=== PATIENT | female | born 1950 | race Caucasian/White ===

== ENCOUNTER 2017-07-29 10:23 | Inpatient (IN) | payer MEDICARE, BC ==
--- NOTE | 2017-07-29 10:43 | EDM.PDOC ---
ED HPI GENERAL MEDICAL PROBLEM - General Chief Complaint: Cardiovascular Problem Stated Complaint: SOB Time Seen by Provider: 07/29/17 10:41 Source of Information: Reports: Patient - History of Present Illness INITIAL COMMENTS - FREE TEXT/NARRATIVE: Patient is here today with complaints of chest pain. She states that this started this morning, she has had similar pains previously. She states that it is worse with movement and with breathing especially on exhalation. This does not change with exertion though she has not done much to exert herself per her report. Patient states it is quite sharp, not squeezing. She has no cardiac history or history of blood clots but she has been under treatment for breast cancer for the last 4 years. She states that just last week her oncologist Dr. Handley stopped her chemotherapy as she was having significant side effect from this the plan is to hold her chemotherapy for 2 months and then resume again. Patient denies any headache/dizziness. She does feel a bit short of breath. Denies any nausea. She notes edema but states that this has been an ongoing issue. Left Chest Pain Score (Numeric/FACES): 9 - Related Data Allergies Allergy/AdvReac Type Severity Reaction Status Date / Time celecoxib [From Celebrex] Allergy Cannot Verified 07/29/17 10:35 Remember silver Allergy Blisters Verified 07/29/17 10:35 [From Tegaderm AG Mesh] venom-wasp [wasp venom] Allergy Swelling Verified 07/29/17 10:35 atorvastatin AdvReac Muscle Verified 07/29/17 13:11 Weakness naproxen [From Aleve] AdvReac Lightheaded Verified 07/29/17 13:11 ness pravastatin AdvReac Muscle Verified 07/29/17 13:11 Weakness simvastatin AdvReac Muscle Verified 07/29/17 13:11 Weakness tegaderm Allergy Rash Uncoded 04/27/16 09:29 Home Meds: Home Meds Aspirin [Halfprin] 81 mg PO DAILY 03/18/16 [History] B2/Vit A,C & E/Lut/Zeaxanth/Mn [Icaps] 1 tab PO DAILY 03/18/16 [History] Colestipol HCl 1 gm PO BID 03/18/16 [History] Krill/Om-3/DHA/EPA/Phospho/Ast [Thornton-3 Krill Oil 300 mg Sfgl] 1 cap PO DAILY [History] Levothyroxine [Synthroid] 50 mcg PO ACBREAKFAST 03/18/16 [History] Losartan [Cozaar] 25 mg PO DAILY 03/18/16 [History] Metoprolol Succinate [Toprol XL 100mg] 100 mg PO DAILY 03/18/16 [History] Multivitamin with Minerals [Multivitamins with Minerals] 1 tab PO DAILY [History] Nitroglycerin 0.4 mg SL ASDIRECTED PRN 03/18/16 [History] Omeprazole 20 mg PO BEDTIME 03/18/16 [History] Oxybutynin [Oxybutynin ER] 10 mg PO BEDTIME 03/18/16 [History] Biotin 1,000 mcg PO DAILY 04/27/16 [History] Calcium Carbonate/Vitamin D3 [Calcium 500 + Vit D 400 Tablet] 400 - 500 mg PO DAILY 04/27/16 [History] Hydrocortisone [Anusol-HC] 30 gm RC Q8H #1 cream..g. 04/27/16 [Rx] Ondansetron HCl [Zofran] 8 mg PO TID PRN 07/29/17 [History] Potassium Chloride 10 meq PO DAILY 07/29/17 [History] Prochlorperazine [Compazine] 10 mg PO QID PRN 07/29/17 [History] Past Medical History HEENT History: Reports: Impaired Vision Other HEENT History: wears eyeglasses Cardiovascular History: Reports: CAD, High Cholesterol, Hypertension Respiratory History: Reports: Pneumonia, Recurrent Gastrointestinal History: Reports: GERD, Hiatal Hernia Genitourinary History: Reports: UTI, Recurrent [employer] HEAD History: Reports: Musculoskeletal History: Reports: Arthritis Endocrine/Metabolic History: Reports: Hypothyroidism, Obesity/BMI 30+ Hematologic History: Reports: Anemia, Blood Transfusion(s) Immunologic History: Reports: Other (See Below) Oncologic (Cancer) History: Reports: Breast (adenocarcinoma, now recurrent with mets to lymph nodes and lung) Other Oncologic History: now has CA in lymph nodes. Dermatologic History: Reports: Eczema - Infectious Disease History Infectious Disease History: Reports: Shingles - Past Surgical History Female Surgical History: Reports: Hysterectomy, Mastectomy, Salpingo- Oophorectomy Oncologic Surgical History: Reports: Mastectomy Social & Family History - Tobacco Use Smoking Status *Q: Never Smoker Second Hand Smoke Exposure: No - Caffeine Use Caffeine Use: Reports: Soda - Alcohol Use Days Per Week of Alcohol Use: 0 - Recreational Drug Use Recreational Drug Use: No ED ROS GENERAL - Review of Systems Review Of Systems: See Below Constitutional: Reports: Weakness, Fatigue. Denies: Fever, Chills Respiratory: Reports: Shortness of Breath, Pleuritic Chest Pain. Denies: Wheezing, Cough Cardiovascular: Reports: Chest Pain, Blood Pressure Problem, Edema (Stable from previous per her report. ). Denies: Claudication GI/Abdominal: Reports: No Symptoms Skin: Reports: No Symptoms Neurological: Reports: No Symptoms, Other. Denies: Dizziness, Headache Psychiatric: Reports: No Symptoms Hematologic/Lymphatic: Reports: No Symptoms ED EXAM, GENERAL - Physical Exam Exam: See Below Exam Limited By: No Limitations General Appearance: Alert, WD/WN, Mild Distress Throat/Mouth: Normal Oropharynx Neck: Normal Inspection Respiratory/Chest: No Respiratory Distress, Lungs Clear, Normal Breath Sounds, No Accessory Muscle Use Cardiovascular: Normal Peripheral Pulses, Regular Rate, Rhythm, No Murmur Peripheral Pulses: 2+: Posterior Tibial (L), Posterior Tibial (R) GI/Abdominal: Normal Bowel Sounds Neurological: Alert, Oriented Psychiatric: Normal Affect Skin Exam: Warm, Dry, Intact EKG INTERPRETATION EKG Date: 07/29/17 Time: 10:35 Rhythm: NSR EKG Interpretation Comments: Left atrial enlargement left ventricular hypertrophy Course - Vital Signs Last Recorded V/S: Last Vital Signs Temp 98.5 F 07/29/17 10:31 Pulse 90 07/29/17 10:31 Resp 18 07/29/17 10:31 BP 248/119 H 07/29/17 10:31 Pulse Ox 92 L 07/29/17 10:31 - Orders/Labs/Meds Orders: Active Orders 24 hr Category Date Time Status EKG 12 Lead [EKG Documentation Completion] [RC] STAT Care 07/29/17 10:40 Active Sodium Chloride 0.9% [Normal Saline] 1,000 ml Med 07/29/17 11:02 Active IV ONETIME Sodium Chloride 0.9% [Normal Saline] 100 ml Med 07/29/17 12:30 Active IV ASDIRECTED Sodium Chloride 0.9% [Saline Flush] Med 07/29/17 12:23 Active 10 ml FLUSH ONETIME PRN Medication Orders Sodium Chloride (Normal Saline) 1,000 mls @ 250 mls/hr IV ONETIME ONE Stop: 07/29/17 15:01 Last Admin: 07/29/17 11:35 Dose: 250 mls/hr Sodium Chloride (Normal Saline) 100 mls @ 75 mls/hr IV ASDIRECTED FAMILIA Last Admin: 07/29/17 12:33 Dose: 75 mls/hr Sodium Chloride (Saline Flush) 10 ml FLUSH ONETIME PRN PRN Reason: Keep Vein Open Last Admin: 07/29/17 12:33 Dose: 10 ml Labs: Laboratory Tests 07/29/17 07/29/17 07/29/17 Range/Units 11:23 11:23 11:23 WBC 8.55 (3.98-10.04) K/mm3 RBC 3.70 L (3.98-5.22) M/mm3 Hgb 11.3 (11.2-15.7) gm/L Hct 36.0 (34.1-44.9) % MCV 97.3 H (79.4-94.8) fl MCH 30.5 (25.6-32.2) pg MCHC 31.4 L (32.2-35.5) g/dl RDW Std Deviation 54.7 H (36.4-46.3) fL Plt Count 377 H (182-369) K/mm3 MPV 10.3 (9.4-12.3) fl Neutrophils % (Manual) 72 H (40-60) % Band Neutrophils % 0 (0-10) % Lymphocytes % (Manual) 9 L (20-40) % Atypical Lymphs % 0 % Monocytes % (Manual) 16 H (2-10) % Eosinophils % (Manual) 3 (0.7-5.8) % Basophils % (Manual) 0 L (0.1-1.2) Platelet Estimate Adequate Hypochromasia 1+ slight Anisocytosis 1+ slight RBC Morph Comment Abnormal D-Dimer, Quantitative 9.68 H (0.19-0.59) mg/L Sodium 140 (136-145) mEq/L Potassium 3.6 (3.5-5.1) mEq/L Chloride 105 (98-107) mEq/L Carbon Dioxide 26 (21-32) mEq/L Anion Gap 12.6 (5-15) BUN 23 H (7-18) mg/dL Creatinine 1.3 H (0.55-1.02) mg/dL Est Cr Clr Drug Dosing 32.30 mL/min Estimated GFR (MDRD) 41 (>60) mL/min BUN/Creatinine Ratio 17.7 (14-18) Glucose 114 (80-115) mg/dL Calcium 9.1 (8.5-10.1) mg/dL Total Bilirubin 0.5 (0.2-1.0) mg/dL AST 36 (15-37) U/L ALT 33 (14-59) U/L Alkaline Phosphatase 131 H (46-116) U/L Troponin I 0.019 (0.00-0.056) ng/mL C-Reactive Protein 2.4 H* (<1.0) mg/dL Total Protein 6.9 (6.4-8.2) g/dl Albumin 3.4 (3.4-5.0) g/dl Globulin 3.5 gm/dL Albumin/Globulin Ratio 1.0 (1-2) Urine Color (Yellow) Urine Appearance (Clear) Urine pH (5.0-8.0) Ur Specific [place] (1.005-1.030) Urine Protein (Negative) Urine Glucose (UA) (Negative) Urine Ketones (Negative) Urine Occult Blood (Negative) Urine Nitrite (Negative) Urine Bilirubin (Negative) Urine Urobilinogen (0.2-1.0) Ur Leukocyte Esterase (Negative) Urine RBC (0-5) /hpf Urine WBC (0-5) /hpf Ur Epithelial Cells (0-5) /hpf Urine Bacteria (FEW) /hpf Hyaline Casts (0-5) /lpf Urine Mucus (FEW) /hpf 07/29/17 Range/Units 12:30 WBC (3.98-10.04) K/mm3 RBC (3.98-5.22) M/mm3 Hgb (11.2-15.7) gm/L Hct (34.1-44.9) % MCV (79.4-94.8) fl MCH (25.6-32.2) pg MCHC (32.2-35.5) g/dl RDW Std Deviation (36.4-46.3) fL Plt Count (182-369) K/mm3 MPV (9.4-12.3) fl Neutrophils % (Manual) (40-60) % Band Neutrophils % (0-10) % Lymphocytes % (Manual) (20-40) % Atypical Lymphs % % Monocytes % (Manual) (2-10) % Eosinophils % (Manual) (0.7-5.8) % Basophils % (Manual) (0.1-1.2) Platelet Estimate Hypochromasia Anisocytosis RBC Morph Comment D-Dimer, Quantitative (0.19-0.59) mg/L Sodium (136-145) mEq/L Potassium (3.5-5.1) mEq/L Chloride (98-107) mEq/L Carbon Dioxide (21-32) mEq/L Anion Gap (5-15) BUN (7-18) mg/dL Creatinine (0.55-1.02) mg/dL Est Cr Clr Drug Dosing mL/min Estimated GFR (MDRD) (>60) mL/min BUN/Creatinine Ratio (14-18) Glucose (80-115) mg/dL Calcium (8.5-10.1) mg/dL Total Bilirubin (0.2-1.0) mg/dL AST (15-37) U/L ALT (14-59) U/L Alkaline Phosphatase (46-116) U/L Troponin I (0.00-0.056) ng/mL C-Reactive Protein (<1.0) mg/dL Total Protein (6.4-8.2) g/dl Albumin (3.4-5.0) g/dl Globulin gm/dL Albumin/Globulin Ratio (1-2) Urine Color Yellow (Yellow) Urine Appearance Clear (Clear) Urine pH 7.0 (5.0-8.0) Ur Specific [place] 1.020 (1.005-1.030) Urine Protein 1+ H (Negative) Urine Glucose (UA) Negative (Negative) Urine Ketones Negative (Negative) Urine Occult Blood Negative (Negative) Urine Nitrite Negative (Negative) Urine Bilirubin Negative (Negative) Urine Urobilinogen 0.2 (0.2-1.0) Ur Leukocyte Esterase Trace H (Negative) Urine RBC 0-5 (0-5) /hpf Urine WBC 5-10 H (0-5) /hpf Ur Epithelial Cells 10-20 H (0-5) /hpf Urine Bacteria Moderate H (FEW) /hpf Hyaline Casts 0-5 (0-5) /lpf Urine Mucus Few (FEW) /hpf Meds: Medications Generic Name Dose Route Start Last Admin Trade Name Freq PRN Reason Stop Dose Admin Sodium Chloride 1,000 mls @ 250 mls/hr 07/29/17 11:02 07/29/17 11:35 Normal Saline IV 07/29/17 15:01 250 mls/hr ONETIME ONE Administration Sodium Chloride 100 mls @ 75 mls/hr 07/29/17 12:30 07/29/17 12:33 Normal Saline IV 75 mls/hr ASDIRECTED FAMILIA Administration Sodium Chloride 10 ml 07/29/17 12:23 07/29/17 12:33 Saline Flush FLUSH 10 ml ONETIME PRN Administration Keep Vein Open Discontinued Medications Generic Name Dose Route Start Last Admin Trade Name Freq PRN Reason Stop Dose Admin Acetaminophen 650 mg 07/29/17 11:58 07/29/17 12:49 Tylenol PO 07/29/17 11:59 650 mg NOW ONE Administration Aspirin 324 mg 07/29/17 10:51 07/29/17 11:38 Aspirin PO 07/29/17 10:52 Not Given ONETIME ONE Clonidine HCl 0.1 mg 07/29/17 14:37 Catapres PO 07/29/17 14:38 ONETIME ONE Iopamidol 100 ml 07/29/17 12:23 07/29/17 12:33 Isovue-370 (76%) IVPUSH 07/29/17 12:24 100 ml ONETIME ONE Administration - Re-Assessments/Exams Free Text/Narrative Re-Assessment/Exam: EKG normal sinus rhythm at a rate of 78. She does have left atrial enlargement/ ventricular hypertrophy. Patient initially declining stronger pain medication, agreeable to aspirin. Oxygen maintaining approximately 95% on room air. Blood pressure is significantly elevated at 212/87, patient is quite anxious and she is refusing blood pressure medication at this time. She states that she did take her morning home medications quite recently and they have not "kicked in". Will get lab work including troponin and d-dimer as well as chest x-ray 07/29/17 11:09 Patient declines aspirin, will be given Tylenol for pain. X-ray demonstrates no acute findings. 07/29/17 12:39 WBC 8550. Troponin 0.019. D-dimer was significantly elevated at 9.68. Patient does need a CTA of the chest to examine for evaluate for pulmonary embolism. Creatinine is 1.3, patient will be given fluids. 07/29/17 12:41 CTA demonstrates #1 pulmonary embolism in the distal right pulmonary artery extending into the subsegmental branch of the right upper lung as well as segmental branches of the right lower lung. #2 multiple subpleural pulmonary nodules suspicious for metastatic disease. #3 enlarged lymph node within the left axillary region likely metastatic. The lung nodule and enlarged lymph node are known by her oncologist and being monitored. 07/29/17 14:33 Patient's case was discussed with Dr. Jurado/hospitalist who agrees to accept care for the patient. Blood pressure continues to remain elevated as well so will give clonidine 0.1 mg by mouth. 07/29/17 14:37 The patient and her patient is a full CODE STATUS. 07/29/17 14:44 Departure - Departure Time of Disposition: 14:40 Disposition: Admitted As Inpatient 64 Condition: Fair Clinical Impression: Pulmonary embolism Qualifiers: Chronicity: acute Acute cor pulmonale presence: without acute cor pulmonale Hypertension Qualifiers: Hypertension type: essential hypertension Qualified Code(s): I10 - Essential ( primary) hypertension Breast CA Qualifiers: Patient sex: female Laterality: left Referrals: PCP,Unknown [Ordering Only Provider] - Forms: ED Department Discharge - My Orders Last 24 Hours: My Active Orders 07/29/17 10:40 EKG 12 Lead [EKG Documentation Completion] [RC] STAT 07/29/17 11:02 Sodium Chloride 0.9% [Normal Saline] 1,000 ml IV ONETIME 07/29/17 12:23 Sodium Chloride 0.9% [Saline Flush] 10 ml FLUSH ONETIME PRN 07/29/17 12:30 Sodium Chloride 0.9% [Normal Saline] 100 ml IV ASDIRECTED - Assessment/Plan Last 24 Hours: My Active Orders 07/29/17 10:40 EKG 12 Lead [EKG Documentation Completion] [RC] STAT 07/29/17 11:02 Sodium Chloride 0.9% [Normal Saline] 1,000 ml IV ONETIME 07/29/17 12:23 Sodium Chloride 0.9% [Saline Flush] 10 ml FLUSH ONETIME PRN 07/29/17 12:30 Sodium Chloride 0.9% [Normal Saline] 100 ml IV ASDIRECTED
[2017-07-29] MEDS ORDERED: Aspirin 81 MG Tab.Chew PO ONE (10:51)
[2017-07-29] MEDS ORDERED: Sodium Chloride 0.9% 1,000 ML IV ONE (11:02)
[2017-07-29] MEDS ORDERED: Acetaminophen 325 MG Tab PO ONE (11:58)
--- NOTE | 2017-07-29 12:21 | CR ---
Chest: Two views of the chest were obtained. Comparison: Prior chest x-ray of 03/18/16. Heart size and mediastinum are within normal limits. Lungs are clear. Surgical clips are seen within the left axillary region. Right-sided infusion port is seen. Slight degenerative endplate spurring is seen within the spine. Impression: 1. Findings as noted above. Nothing acute is appreciated. Diagnostic code #2
[2017-07-29] MEDS ORDERED: Iopamidol 755 Mg/ML 100 ML Bottle IVPUSH ONE (12:23)
[2017-07-29] MEDS ORDERED: Sodium Chloride 0.9% 10 ML Syringe FLUSH PRN (12:23)
[2017-07-29] MEDS ORDERED: Sodium Chloride 0.9% 100 ML IV SCH (12:30)
[2017-07-29] MEDS ORDERED: Sodium Chloride 0.9% 250 ML IV SCH (13:15)
--- NOTE | 2017-07-29 13:37 | CT ---
CT chest Technique: Multiple axial sections through the chest were obtained. Intravenous contrast was utilized. Study has been performed as a pulmonary angiogram protocol. Findings: Filling defects are identified within the distal right main pulmonary artery extending into the subsegmental branch of the right upper lung as well as segmental branches of the right lower lung. Subsegmental pulmonary emboli are seen within the right lung base as well as additional pulmonary emboli within subsegmental branches within the left lower lung. Small amount of clot is also seen within the lingular segmental branch. Mediastinal lymph nodes are seen felt to be within normal limits. Prominent lymph node is seen within the left axillary region measuring up to 2.6 cm. Small portion of the visualized upper abdominal structures shows previous cholecystectomy. Moderately large hiatal hernia is also noted. Multiple sub-pleural nodules are seen within both sides of the chest. These findings are suspicious for metastatic disease. Dominant nodule located within the right middle lobe measuring 1.0 cm. Bone window settings show degenerative endplate spurring within the spine. Slight coronary artery calcification is seen. Impression: 1. Findings of pulmonary embolism as described above. 2. Multiple subpleural pulmonary nodules suspicious for metastatic disease. 3. Enlarged lymph node within the left axillary region likely metastatic. Diagnostic code #9 [employer] called report to Linda Herrera and nurse Milagro at [phone] on 07/29/17 (left message, will confirm)
[2017-07-29] MEDS ORDERED: cloNIDine 0.1 MG Tab PO ONE (14:37)
[2017-07-29] MEDS ORDERED: Bumetanide 1 MG/4 ML MDV IVPUSH ONE (16:32)
[2017-07-29] MEDS ORDERED: hydrALAZINE 20 MG/ML SDV IVPUSH ONE (16:32)
[2017-07-29] MEDS ORDERED: Albuterol/Ipratropium 3.0-0.5 MG/3 ML Neb Soln NEB PRN (17:42)
[2017-07-29] MEDS ORDERED: Ondansetron 4 MG Tab.DIS PO PRN (17:42)
[2017-07-29] MEDS ORDERED: Docusate Sodium 100 MG Cap PO PRN (17:42)
[2017-07-29] MEDS ORDERED: Acetaminophen 325 MG Tab PO PRN (17:42)
[2017-07-29] MEDS ORDERED: Ondansetron 4 MG/2 ML SDV IV PRN (17:42)
[2017-07-29] MEDS ORDERED: Ketorolac 30 MG/ML SDV IM ONE (17:42)
[2017-07-29] MEDS ORDERED: Polyethylene Glycol 3350 Powder 17 GM Packet PO PRN (17:42)
[2017-07-29] MEDS ORDERED: Bisacodyl 5 MG Tab PO PRN (17:42)
[2017-07-29] MEDS ORDERED: Metoprolol Tartrate 5 MG/5 ML SDV IVPUSH PRN (17:52)
[2017-07-29] MEDS ORDERED: hydrALAZINE 20 MG/ML SDV IVPUSH PRN ×2 (17:52→17:55)
--- NOTE | 2017-07-29 17:57 | PCM.HP ---
H&P History of Present Illness - General Date of Service: 07/29/17 Admit Problem/Dx: Admission Diagnosis/Problem Admission Diagnosis/Problem Pulmonary embolism Source of Information: Patient, Old Records, Provider, RN, RN Notes Reviewed History Limitations: Reports: No Limitations - History of Present Illness Initial Comments - Free Text/Narative: Antonella Cortez is a 67 yo female who since her ED today with chest pain. She reports that this morning she has had similar pains previously. It is worse with movement and breathing,/on exhalation. She says the pain is sharp not squeezing. She has no cardiac history or history of blood clots but she benjamin been under treatment with Dr. Handley for breast cancer over the past 4 years. She reports that last week chemotherapy was stopped due to side effects and the plan is to restart chemotherapy in 2 months. She denies any headache, dizziness , nausea, vomiting. She has been short of breath. She does note pedal edema but states this has been chronic for her. She reports multiple drug allergies. In the ER temp is 98.5. Pulse 90. Respirations 18. BP was extremely high at 248/119. Pulse ox was 92% on room air. Twelve-lead EKG is obtained and interpreted by the ED provider as NSR at a rate of 78. Left atrial enlargement and ventricular hypertrophy are noted. Labs are obtained: FVC is 8.55. Hemoglobin 11.3. Hematocrit 36.0. She is macrocytic. Platelets are high at 377,000. Neutrophils are elevated at 72%. There is no bandemia. D-dimer is very high at 9.68. Sodium was good at 140. Potassium 3.6. Chloride 105. Carbon dioxide 26. Anion gap 12.6. BUN 23. Creatinine 1.3. EGFR is 41. Glucose is 114. Calcium 9.1. Total bilirubin 0.5. AST is 36, ALT 33, alkaline phosphatase 131. Troponin is negative at 0.019. CRP is elevated at 2.4. Total protein is 6.9. Albumin 3.4. UA shows 1+ protein, trace leukocyte esterase, 5-10 urine WBCs, 10-20 epithelial cells, and moderate bacteria. She has been declining stronger pain medications however 650 mg Tylenol and 324 mg aspirin are given. Catapres 0.1 mg by mouth was given for hypertension. CTA was obtained and interpreted by radiologist as "1. Pulmonary embolism in the distal right pulmonary artery extending into the subsegmental branch of the right upper lung as well as segmental branches of the right lower lung. 2. Multiple subpleural pulmonary nodules suspicious for metastatic disease. 3. Enlarged lymph node within the left axillary region likely metastatic." Lung nodule enlarged lymph node are known by her oncologist and her being monitored. 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 She is subsequently admitted to the medical floor on telemetry. She is a full code. Her PCP has switched several times although she reports she will be seeing Dr. Mock at [facility]. Her oncologist is Dr. Handley, however he is leaving and she will be seeing a new oncologist in September. Left Chest Pain Score (Numeric/FACES): 1 - Related Data Allergies/Adverse Reactions: Allergies Allergy/AdvReac Type Severity Reaction Status Date / Time celecoxib [From Celebrex] Allergy Cannot Verified 07/29/17 10:35 Remember silver Allergy Blisters Verified 07/29/17 10:35 [From Tegaderm AG Mesh] venom-wasp [wasp venom] Allergy Swelling Verified 07/29/17 10:35 atorvastatin AdvReac Muscle Verified 07/29/17 13:11 Weakness naproxen [From Aleve] AdvReac Lightheaded Verified 07/29/17 13:11 ness pravastatin AdvReac Muscle Verified 07/29/17 13:11 Weakness simvastatin AdvReac Muscle Verified 07/29/17 13:11 Weakness tegaderm Allergy Rash Uncoded 04/27/16 09:29 Home Medications: Home Meds Aspirin [Halfprin] 81 mg PO DAILY 03/18/16 [History] B2/Vit A,C & E/Lut/Zeaxanth/Mn [Icaps] 1 tab PO DAILY 03/18/16 [History] Colestipol HCl 1 gm PO BID 03/18/16 [History] Krill/Om-3/DHA/EPA/Phospho/Ast [Fannin-3 Krill Oil 300 mg Sfgl] 1 cap PO DAILY [History] Levothyroxine [Synthroid] 50 mcg PO ACBREAKFAST 03/18/16 [History] Losartan [Cozaar] 25 mg PO DAILY 03/18/16 [History] Metoprolol Succinate [Toprol XL 100mg] 100 mg PO DAILY 03/18/16 [History] Multivitamin with Minerals [Multivitamins with Minerals] 1 tab PO DAILY [History] Nitroglycerin 0.4 mg SL ASDIRECTED PRN 03/18/16 [History] Omeprazole 20 mg PO BEDTIME 03/18/16 [History] Oxybutynin [Oxybutynin ER] 10 mg PO BEDTIME 03/18/16 [History] Biotin 1,000 mcg PO DAILY 04/27/16 [History] Calcium Carbonate/Vitamin D3 [Calcium 500 + Vit D 400 Tablet] 400 - 500 mg PO DAILY 04/27/16 [History] Hydrocortisone [Anusol-HC] 30 gm RC Q8H #1 cream..g. 04/27/16 [Rx] Ondansetron HCl [Zofran] 8 mg PO TID PRN 07/29/17 [History] Potassium Chloride 10 meq PO DAILY 07/29/17 [History] Prochlorperazine [Compazine] 10 mg PO QID PRN 07/29/17 [History] Past Medical History HEENT History: Reports: Impaired Vision Other HEENT History: wears eyeglasses Cardiovascular History: Reports: Blood Clots/VTE/DVT, CAD, High Cholesterol, Hypertension, SOB on Exertion Other Cardiovascular History: VTE is new; shortness of breath x3 weeks Respiratory History: Reports: PE, Pneumonia, Recurrent, SOB Gastrointestinal History: Reports: GERD, Hiatal Hernia, Other (See Below) Other Gastrointestinal History: diarrhea from radiation/chemo Genitourinary History: Reports: UTI, Recurrent NURSE FIRST AID History: Reports: Musculoskeletal History: Reports: Arthritis Neurological History: Reports: None Endocrine/Metabolic History: Reports: Hypothyroidism, Obesity/BMI 30+ Hematologic History: Reports: Anemia, Blood Transfusion(s) Other Hematologic History: during chemotherapy tx Immunologic History: Reports: Other (See Below) Oncologic (Cancer) History: Reports: Breast Other Oncologic History: left sided breast cancer; bilat mastectomy Dermatologic History: Reports: Eczema - Infectious Disease History Infectious Disease History: Reports: Chicken Pox, Shingles - Past Surgical History HEENT Surgical History: Reports: Cataract Surgery GI Surgical History: Reports: Cholecystectomy Female Surgical History: Reports: Hysterectomy, Mastectomy Oncologic Surgical History: Reports: Mastectomy Social & Family History - Tobacco Use Smoking Status *Q: Never Smoker Second Hand Smoke Exposure: No - Caffeine Use Caffeine Use: Reports: Soda - Alcohol Use Days Per Week of Alcohol Use: 0 - Recreational Drug Use Recreational Drug Use: No H&P Review of Systems - Review of Systems: Review Of Systems: See Below Free Text/Narrative: In to see Antonella. She denies any history of PE or DVT. No recent long trips or extended periods of sitting. She reports she has had multiple episodes of leg swelling and erythema. She reports she has had multiple leg ultrasounds looking for DVT. All have been negative thus far. She reports she has known cancer metastasis to lung and lymph nodes from prior breast cancer. She reports she has been on chemotherapy for this and they are stable at this time, neither shrinking nor growing. Her oncologist, Dr. Handley, is leaving the area and she will be seeing a new oncologist starting in September. At that time they were reportedly talked about resuming chemotherapy. Her PE is likely directly related to the cancer, however with her edema and tender legs I feel it is prudent to perform a another duplex ultrasound to rule out DVT. Will start Lovenox as this has been studied for cancer-related PE. We did discuss that she will widely need to be on Lovenox for 6 months to a year, or longer. Stressed the importance of following up with her oncologist and primary care provider after discharge. Will give Bumex for edema. Will also order echo as she is unsure of her last one and twelve-lead EKG demonstrated probable atrial enlargement and ventricular hypertrophy. She is having some pain in her left chest midclavicular. Troponin was negative in the ED. She is adamant about not taking any opioid or higher strength pain medications. She is given Tylenol and ASA in ED which helped somewhat. We did discuss Toradol and she feels this would be acceptable. We'll give a small dose and see what her response is. General: Reports: Weakness, Fatigue. Denies: Fever, Chills, Malaise, Diaphoresis, Decreased Appetite HEENT: Reports: No Symptoms. Denies: Dysphasia, Ear Pain, Eye Pain, Headaches, Rhinitis, Post Nasal Drip, Sinus Congestion, Sore Throat, Vertigo Pulmonary: Reports: Shortness of Breath, Pleuritic Chest Pain. Denies: Wheezing , Cough, Sputum Cardiovascular: Reports: Chest Pain (Midclavicular), Dyspnea on Exertion, Edema , Blood Pressure Problem. Denies: Palpitations, Lightheadedness Gastrointestinal: Reports: No Symptoms. Denies: Abdominal Pain, Constipation, Diarrhea, Hematemesis, Hematochezia, Melena, Nausea, Stool Incontinence, Vomiting Genitourinary: Reports: No Symptoms. Denies: Dysuria, Frequency, Burning, Pain , Urgency Musculoskeletal: Reports: No Symptoms. Denies: Muscle Pain, Muscle Stiffness Skin: Reports: No Symptoms Psychiatric: Reports: No Symptoms Neurological: Reports: No Symptoms Hematologic/Lymphatic: Reports: No Symptoms Immunologic: Reports: No Symptoms Exam - Exam Exam: See Below - Vital Signs Vital Signs: Last Vital Signs Temp 98.8 F 07/29/17 15:56 Pulse 73 07/29/17 15:59 Resp 20 07/29/17 15:56 BP 160/88 H 07/29/17 16:30 Pulse Ox 97 07/29/17 15:59 Weight: 219 lb 3.2 oz - Exam Quality Assessment: Supplemental Oxygen, DVT Prophylaxis General: Alert, Oriented, Cooperative. No: Mild Distress HEENT: PERRLA, Hearing Intact, Mucosa Moist & [place], Nares Patent, Normal Nasal Septum, Posterior Pharynx Clear, Conjunctiva Clear, EOMI, EACs Clear, TMs Clear Neck: Supple, Trachea Midline. No: JVD, Thyromegaly Lungs: Clear to Auscultation, Normal Respiratory Effort. No: Crackles, Rales, Rhonchi, Rub, Wheezing Cardiovascular: Regular Rate, Regular Rhythm GI/Abdominal Exam: Normal Bowel Sounds, Soft, Non-Tender, No Organomegaly, No Distention, No Abnormal Bruit, No Mass, Pelvis Stable (Female) Exam: Deferred Rectal (Female) Exam: Deferred Back Exam: Normal Inspection, Decreased Range of Motion Extremities: Normal Range of Motion, Normal Capillary Refill, Pedal Edema (2+ pitting on right leg and foot. Pitting on left foot 1+), Increased Warmth, Other (Some minor color changes to bilateral legs. Skin is shiny and dry.) Peripheral Pulses: 1+: Posterior Tibial (L), Posterior Tibial (R), Dorsalis Pedis (L), Dorsalis Pedis (R), 2+: Radial (L), Radial (R) Skin: Warm, Dry, Intact Neurological: Cranial Nerves Intact (grossly ) Neuro Extensive - Mental Status: Alert, Oriented x3, Normal Mood/Affect, Normal Cognition, Memory Intact Neuro Extensive - Motor, Sensory, Reflexes: CN II-XII Intact (grossly) Psychiatric: Alert, Normal Affect, Normal Mood - Patient Data Result Diagrams: 07/29/17 11:23 07/29/17 11:23 *Q Meaningful Use (ADM) - VTE *Q VTE Criteria *Q: - Stroke *Q Stroke Criteria *Q: - AMI *Q AMI Criteria *Q: - Problem List (1) Pulmonary embolism SNOMED Code(s): 45277495 ICD Code: I26.99 - OTHER PULMONARY EMBOLISM WITHOUT ACUTE COR PULMONALE Status: Acute Priority: High Current Visit: Yes Qualifiers: Pulmonary embolism type: other Chronicity: acute Acute cor pulmonale presence: without acute cor pulmonale Qualified Code(s): I26.99 - Other pulmonary embolism without acute cor pulmonale (2) Malignant hypertension SNOMED Code(s): 67845118 ICD Code: I10 - ESSENTIAL (PRIMARY) HYPERTENSION Status: Acute Priority: High Current Visit: Yes (3) Metastatic adenocarcinoma to lung SNOMED Code(s): 4890066398552 ICD Code: C78.00 - SECONDARY MALIGNANT NEOPLASM OF UNSPECIFIED LUNG Status : Chronic Priority: Medium Current Visit: Yes Qualifiers: Laterality: left Qualified Code(s): C78.02 - Secondary malignant neoplasm of left lung (4) 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 SNOMED Code(s): 1449366716218 ICD Code: C77.9 - SECONDARY AND UNSP MALIGNANT NEOPLASM OF LYMPH NODE, UNSP Status: Chronic Priority: Medium Current Visit: Yes (5) Adenocarcinoma of breast SNOMED Code(s): 624793349 ICD Code: C50.919 - MALIGNANT NEOPLASM OF UNSP SITE OF UNSPECIFIED FEMALE BREAST Status: Chronic Priority: Medium Current Visit: Yes Qualifiers: Laterality: unspecified laterality Qualified Code(s): C50.919 - Malignant neoplasm of unspecified site of unspecified female breast (6) CAD (coronary artery disease) SNOMED Code(s): 97563117 ICD Code: I25.10 - ATHSCL HEART DISEASE OF [place] CORONARY ARTERY W/O ANG PCTRS Status: Chronic Priority: Low Current Visit: No Qualifiers: Coronary Disease-Associated Artery/Lesion type: [place] artery [place] vs. transplanted heart: [place] heart Associated angina: without angina Qualified Code(s): I25.10 - Atherosclerotic heart disease of [place] coronary artery without angina pectoris (7) HLD (hyperlipidemia) SNOMED Code(s): 08041472 ICD Code: E78.5 - HYPERLIPIDEMIA, UNSPECIFIED Status: Chronic Priority: Low Current Visit: No Qualifiers: Hyperlipidemia type: unspecified Qualified Code(s): E78.5 - Hyperlipidemia , unspecified (8) GERD (gastroesophageal reflux disease) SNOMED Code(s): 003956164 ICD Code: K21.9 - GASTRO-ESOPHAGEAL REFLUX DISEASE WITHOUT ESOPHAGITIS Status: Chronic Priority: Low Current Visit: No Qualifiers: Esophagitis presence: esophagitis presence not specified Qualified Code(s) : K21.9 - Gastro-esophageal reflux disease without esophagitis (9) Arthritis SNOMED Code(s): 7835954 ICD Code: M19.90 - UNSPECIFIED OSTEOARTHRITIS, UNSPECIFIED SITE Status: Chronic Priority: Low Current Visit: No (10) Hypothyroidism SNOMED Code(s): 62543365 ICD Code: E03.9 - HYPOTHYROIDISM, UNSPECIFIED Status: Chronic Priority: Low Current Visit: Yes Qualifiers: Hypothyroidism type: unspecified Qualified Code(s): E03.9 - Hypothyroidism , unspecified (11) Morbid obesity with BMI of 40.0-44.9, adult SNOMED Code(s): 608691602 ICD Code: E66.01 - MORBID (SEVERE) OBESITY DUE TO EXCESS CALORIES; Z68.41 - BODY MASS INDEX (BMI) 40.0-44.9, ADULT Status: Chronic Priority: Low Current Visit: Yes (12) Anemia SNOMED Code(s): 099121207 ICD Code: D64.9 - ANEMIA, UNSPECIFIED Status: Chronic Priority: Low Current Visit: No Qualifiers: Anemia type: unspecified type Qualified Code(s): D64.9 - Anemia, unspecified (13) Eczema SNOMED Code(s): 90081674 ICD Code: L30.9 - DERMATITIS, UNSPECIFIED Status: Chronic Priority: Low Current Visit: No Qualifiers: Eczema type: unspecified Qualified Code(s): L30.9 - Dermatitis, unspecified Problem List Initiated/Reviewed/Updated: Yes Orders Last 24hrs: Active Orders 24 hr Category Date Time Status Patient Status [ADT] Routine ADT 07/29/17 16:33 Active Ambulate [RC] PER UNIT ROUTINE Care 07/29/17 17:43 Ordered Cardiac Monitoring [RC] CONTINUOUS Care 07/29/17 17:43 Ordered Height and Weight [RC] DAILY Care 07/29/17 17:42 Ordered Intake and Output [RC] QSHIFT Care 07/29/17 17:43 Ordered Oxygen Therapy [RC] PRN Care 07/29/17 17:42 Ordered Pulse Oximetry [RC] PRN Care 07/29/17 17:43 Ordered RT Aerosol Therapy [RC] ASDIRECTED Care 07/29/17 17:45 Ordered Up With Assistance [RC] ASDIRECTED Care 07/29/17 17:42 Ordered Up ad Lorie [RC] ASDIRECTED Care 07/29/17 17:42 Ordered VTE/DVT Education [RC] PER UNIT ROUTINE Care 07/29/17 17:42 Ordered Vital Signs [RC] Q4H Care 07/29/17 17:42 Ordered Consult to Case Management [CONS] Routine Cons 07/29/17 17:42 Ordered Consult to Plug Assembler [CONS] Routine Cons 07/29/17 17:42 Ordered OT Evaluation and Treatment [CONS] Routine Cons 07/29/17 17:42 Ordered PT Evaluation and Treatment [CONS] Routine Cons 07/29/17 17:42 Ordered 2 Gram Sodium Diet [DIET] Diet 07/29/17 Dinner Ordered Echo 2D wo Cont [US] Routine Exams 07/30/17 08:00 Ordered VL Duplex Lwr Ext Veins Ltd Lt [US] Routine Exams 07/30/17 08:00 Ordered VL Duplex Lwr Ext Veins Ltd Rt [US] Routine Exams 07/29/17 17:50 Ordered BASIC METABOLIC PANEL,BMP [CHEM] AM Lab 07/30/17 05:11 Ordered BASIC METABOLIC PANEL,BMP [CHEM] AM Lab 07/31/17 05:11 Ordered BASIC METABOLIC PANEL,BMP [CHEM] AM Lab 08/01/17 05:11 Ordered BASIC METABOLIC PANEL,BMP [CHEM] AM Lab 08/02/17 05:11 Ordered CBC WITH AUTO DIFF [HEME] AM Lab 07/30/17 05:11 Ordered CBC WITH AUTO DIFF [HEME] AM Lab 07/31/17 05:11 Ordered CBC WITH AUTO DIFF [HEME] AM Lab 08/01/17 05:11 Ordered CBC WITH AUTO DIFF [HEME] AM Lab 08/02/17 05:11 Ordered CRP [C-REACTIVE PROTEIN] [CHEM] AM Lab 07/30/17 05:11 Ordered CRP [C-REACTIVE PROTEIN] [CHEM] AM Lab 07/31/17 05:11 Ordered CRP [C-REACTIVE PROTEIN] [CHEM] AM Lab 08/01/17 05:11 Ordered CRP [C-REACTIVE PROTEIN] [CHEM] AM Lab 08/02/17 05:11 Ordered CULTURE URINE [RM] Routine Lab 07/29/17 12:30 Received MAGNESIUM [CHEM] AM Lab 07/30/17 05:11 Ordered MAGNESIUM [CHEM] AM Lab 07/31/17 05:11 Ordered MAGNESIUM [CHEM] AM Lab 08/01/17 05:11 Ordered MAGNESIUM [CHEM] AM Lab 08/02/17 05:11 Ordered PRO B-TYPE NATRIUR PEPT,BNPPRO [CHEM] Routine Lab 07/30/17 05:11 Ordered Acetaminophen [Tylenol] Med 07/29/17 17:42 Ordered 650 mg PO Q4H PRN Albuterol/Ipratropium [DuoNeb 3.0-0.5 MG/3 ML] Med 07/29/17 17:42 Ordered 3 ml NEB Q4H PRN Bisacodyl [Dulcolax] Med 07/29/17 17:42 Ordered 5 mg PO DAILY PRN Bumetanide [Bumex] Med 07/30/17 06:00 Ordered 0.5 mg IVPUSH BID Docusate Sodium [Colace] Med 07/29/17 17:42 Ordered 100 mg PO BID PRN Docusate Sodium/Sennosides [Senna Plus] Med 07/29/17 17:42 Ordered 1 tab PO BID PRN Enoxaparin [Lovenox] Med 07/29/17 21:00 Ordered 100 mg SUBCUT Q12HR Magnesium Rep Pharmacy to Dose [Pharmacy to Dose - Med 07/29/17 18:00 Ordered Magnesium Replacement] 1 dose .XX ASDIRECTED Metoprolol Tartrate [Lopressor] Med 07/29/17 17:52 Ordered 5 mg IVPUSH Q4H PRN Ondansetron [Zofran ODT] Med 07/29/17 17:42 Ordered 4 mg PO Q6H PRN Ondansetron [Zofran] Med 07/29/17 17:42 Ordered 4 mg IV Q6H PRN Polyethylene Glycol 3350 [MiraLAX] Med 07/29/17 17:42 Ordered 17 gm PO DAILY PRN Potassium Rep Pharmacy to Dose [Pharmacy to Dose - Med 07/29/17 18:00 Ordered Potassium Replacement] 1 dose .XX ASDIRECTED hydrALAZINE [Apresoline] Med 07/29/17 17:55 Ordered 10 mg IVPUSH Q6H PRN Code Status [Resuscitation Status] Routine Resus Stat 07/29/17 17:16 Ordered Medication Orders Acetaminophen (Tylenol) 650 mg PO Q4H PRN PRN Reason: Pain (Mild 1-3)/fever Albuterol/Ipratropium (Duoneb 3.0-0.5 Mg/3 Ml) 3 ml NEB Q4H PRN PRN Reason: Shortness Of Breath/wheezing Bisacodyl (Dulcolax) 5 mg PO DAILY PRN PRN Reason: Constipation Bumetanide (Bumex) 0.5 mg IVPUSH BID [facility] Docusate Sodium (Colace) 100 mg PO BID PRN PRN Reason: Constipation Enoxaparin Sodium (Lovenox) 100 mg SUBCUT Q12HR [place] Hydralazine HCl (Apresoline) 10 mg IVPUSH Q6H PRN PRN Reason: Hypertension Sodium Chloride (Normal Saline) 100 mls @ 75 mls/hr IV ASDIRECTED [facility] Last Admin: 07/29/17 12:33 Dose: 75 mls/hr Magnesium Sulfate (Pharmacy To Dose - Magnesium Replacement) 1 dose .XX ASDIRECTED [facility] Metoprolol Tartrate (Lopressor) 5 mg IVPUSH Q4H PRN PRN Reason: Tachycardia Ondansetron HCl (Zofran Odt) 4 mg PO Q6H PRN PRN Reason: nausea, able to take PO Ondansetron HCl (Zofran) 4 mg IV Q6H PRN PRN Reason: Nausea/Vomiting Polyethylene Glycol (Miralax) 17 gm PO DAILY PRN PRN Reason: Constipation Potassium Chloride (Pharmacy To Dose - Potassium Replacement) 1 dose .XX ASDIRECTED [facility] Senna/Docusate Sodium (Senna Plus) 1 tab PO BID PRN PRN Reason: Constipation Sodium Chloride (Saline Flush) 10 ml FLUSH ONETIME PRN PRN Reason: Keep Vein Open Last Admin: 07/29/17 12:33 Dose: 10 ml Assessment/Plan Comment:: I/P: Acute Pulmonary embolism -Chest pain, Dyspnea - especially on exertion, Pulse Ox 92% on arrival -Risk factor: Adenocarcinoma of the breast 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 -Has been having leg tenderness, swelling, and edema for some time on and off - Duplex US ordered for tomorrow -Likely directly related to CA but will query DVT as well -D-Dimer 9.68, CTA positive - See radiology report for full details -Lovenox 100mg BID (1mg/kg) -Will likely need 6-12 months treatment if not longer -Will need PCP/oncology f/u post-discharge -She refuses opioid pain medications - will utilize tylenol and toradol for now -Troponin negative Malignant HTN -BP 248/119 in ED -Pt states she normally runs in 160's systolic [address] Dr[address] Handley is aware of this -Catapres 0.1mg PO given in ED -Hydralazine 10mg IVP PRN for SBP >170 -Home HTN medications -Will need f/u with PCP/oncology as BP should likely be lower at baseline Leg Pain/edema -Reports this has been an ongoing issue for several weeks and waxes/wanes -Reports several prior peripheral vascular ultrasounds in past -Possibly related to cancer history -No hx/o heart failure -12-lead in ED Showed LVH, left atrial enlargement -Echo ordered -Bumex 0.5mg BID -Monitor kidney function Chronic: Impaired vision CAD - stable HLD HTN - as above GERD - stable Recurrent UTI Arthritis Hypothyroidism - TSH, Free T4 ordered Obesity - BMI 40.1 Anemia - stable [place] adenocarcinoma with mets to left lung and lymph nodes eczema Plan: Admit to medical floor on telemetry CM/SW for discharge planning - family has some concerns over cost of medications PT/OT DVT prophylaxis - Lovenox for PE treatment Routine AM labs Home medications as ordered Other orders as indicated above Code status: Full Code. Her PCP is Dr[facility]. Oncologist is Dr. Handley, however he is leaving and she is switching oncologists.
[2017-07-29] MEDS ORDERED: Ketorolac 15 MG/ML SDV IVPUSH ONE (18:23)
[2017-07-29] MEDS: Enoxaparin 100 MG/1 ML Syringe SUBCUT SCH (20:31)
[2017-07-29] MEDS ORDERED: Nitroglycerin 0.4 MG Tab.SL SL PRN (20:41)
[2017-07-29] MEDS ORDERED: Prochlorperazine 5 MG Tab PO PRN (20:41)
[2017-07-29] MEDS ORDERED: Non-Formulary Medication 1 Each (Ondansetron Hcl 8 MG) PO PRN (20:41)
[2017-07-29] MEDS ORDERED: Ketorolac 30 MG/ML SDV IVPUSH PRN (21:49)
[2017-07-29] MEDS: Pantoprazole 40 MG Tab.CR PO SCH (22:01)
[2017-07-29] MEDS: Oxybutynin 5 MG Tab.ER PO SCH (23:25)
[2017-07-30] MEDS: Ketorolac 15 MG/ML SDV IVPUSH PRN ×2 (03:30→13:33)
[2017-07-30] MEDS: Bumetanide 1 MG/4 ML MDV IVPUSH SCH ×3 (05:15→20:38)
[2017-07-30] MEDS ORDERED: Levothyroxine 50 MCG Tab PO SCH (06:00)
[2017-07-30] MEDS: Losartan 25 MG Tab PO SCH (10:18)
[2017-07-30] MEDS: Metoprolol Succinate 50 MG Tab.ER PO SCH (10:18)
[2017-07-30] MEDS: Calcium Carbonate/Vitamin D3 600 MG-200 Units Tab PO SCH (10:18)
[2017-07-30] MEDS: Multivitamins,Therapeutic Tab PO SCH (10:18)
[2017-07-30] MEDS: Levothyroxine 50 MCG Tab PO SCH (10:19)
[2017-07-30] MEDS: Potassium Chloride 10 MEQ Tab.ER PO SCH (10:19)
[2017-07-30] MEDS: Enoxaparin 100 MG/1 ML Syringe SUBCUT SCH ×2 (10:21→20:35)
[2017-07-30] MEDS: BIOTIN 1000 MCG PO SCH (10:33)
[2017-07-30] MEDS: OMEGA KRILL OIL PO SCH (10:33)
--- NOTE | 2017-07-30 12:47 | US ---
Bilateral lower extremity deep venous ultrasound: Duplex and color flow imaging was obtained of the right and left common femoral, superficial femoral, popliteal, posterior tibial and peroneal veins. Findings: Mild subcutaneous edema is noted within the left lower extremity. Normal phasic flow, augmentation and compression are seen. Impression: 1. Subcutaneous edema within the left lower extremity. 2. No evidence of deep venous thrombosis is seen within either the right or left lower extremity. Diagnostic code #2
--- NOTE | 2017-07-30 14:53 | PCM.PN ---
- General Info Date of Service: 07/30/17 Admission Dx/Problem (Free Text): Admission Diagnosis/Problem Admission Diagnosis/Problem Pulmonary embolism Subjective Update: Follow Up Functional Status: Reports: Pain Controlled, Tolerating Diet, Urinating. Denies : New Symptoms - Review of Systems General: Denies: Fever, Weakness, Fatigue, Malaise, Chills HEENT: Reports: No Symptoms Pulmonary: Denies: Shortness of Breath, Pleuritic Chest Pain, Cough Cardiovascular: Reports: Edema. Denies: Chest Pain Gastrointestinal: Denies: Abdominal Pain, Nausea, Vomiting Genitourinary: Reports: No Symptoms Musculoskeletal: Reports: No Symptoms Skin: Denies: Cyanosis, Mottled, Pallor, Diaphoresis Neurological: Denies: Confusion, Difficulty Walking, Weakness, Gait Disturbance Psychiatric: Denies: Depression, Anxiety, Agitation Systems Review Comment:: No significant overnight or acute issues. She is doing just fine. She is comfortable and in no acute distress. Patient has refused diuretic to improve her peripheral edema. She reports no new complaints. - Patient Data Vitals - Most Recent: Last Vital Signs Temp 37.4 C 07/30/17 07:46 Pulse 71 07/30/17 10:18 Resp 19 07/30/17 07:46 BP 122/77 07/30/17 10:18 Pulse Ox 93 L 07/30/17 12:35 Weight - Most Recent: 100.244 kg I&O - Last 24 Hours: Intake & Output 07/29/17 07/30/17 07/30/17 22:59 06:59 14:59 Intake Total 240 200 240 Output Total 400 Balance 240 -200 240 Lab Results Last 24 Hours: Laboratory Results - last 24 hr 07/30/17 07/30/17 Range/Units 05:30 05:30 WBC 6.76 (3.98-10.04) K/mm3 RBC 3.41 L (3.98-5.22) M/mm3 Hgb 10.3 L (11.2-15.7) gm/L Hct 33.3 L (34.1-44.9) % MCV 97.7 H (79.4-94.8) fl MCH 30.2 (25.6-32.2) pg MCHC 30.9 L (32.2-35.5) g/dl RDW Std Deviation 55.6 H (36.4-46.3) fL Plt Count 337 (182-369) K/mm3 MPV 10.9 (9.4-12.3) fl Neut % (Auto) 53.6 (34.0-71.1) % Lymph % (Auto) 16.4 L (19.3-51.7) % [place] % (Auto) 25.3 H (4.7-12.5) % Eos % (Auto) 3.3 (0.7-5.8) Baso % (Auto) 1.3 H (0.1-1.2) % Neut # (Auto) 3.62 (1.56-6.13) K/mm3 Lymph # (Auto) 1.11 L (1.18-3.74) K/mm3 [place] # (Auto) 1.71 H (0.24-0.36) K/mm3 Eos # (Auto) 0.22 (0.04-0.36) K/mm3 Baso # (Auto) 0.09 H (0.01-0.08) K/mm3 Manual Slide Review Abnormal smear Sodium 139 (136-145) mEq/L Potassium 3.8 (3.5-5.1) mEq/L Chloride 104 (98-107) mEq/L Carbon Dioxide 26 (21-32) mEq/L Anion Gap 12.8 (5-15) BUN 26 H (7-18) mg/dL Creatinine 1.4 H (0.55-1.02) mg/dL Est Cr Clr Drug Dosing 29.99 mL/min Estimated GFR (MDRD) 37 (>60) mL/min BUN/Creatinine Ratio 18.6 H (14-18) Glucose 98 (80-115) mg/dL Calcium 8.6 (8.5-10.1) mg/dL Magnesium 2.0 (1.8-2.4) mg/dl C-Reactive Protein 7.2 H* (<1.0) mg/dL NT-Pro-B Natriuret Pep 3218 H (0-125) pg/mL Free T4 1.45 (0.76-1.46) ng/dL TSH 3rd Generation 2.353 (0.358-3.74) uIU/mL Med Orders - Current: Current Medications Acetaminophen (Tylenol) 650 mg PO Q4H PRN PRN Reason: Pain (Mild 1-3)/fever Albuterol/Ipratropium (Duoneb 3.0-0.5 Mg/3 Ml) 3 ml NEB Q4H PRN PRN Reason: Shortness Of Breath/wheezing Bisacodyl (Dulcolax) 5 mg PO DAILY PRN PRN Reason: Constipation Bumetanide (Bumex) 0.5 mg IVPUSH BID [facility] Last Admin: 07/30/17 10:22 Dose: Not Given Calcium Carbonate (Calcium Carbonate/Vitamin D 1500 Mg-200 Unit) 1 tab PO DAILY [facility] Last Admin: 07/30/17 10:18 Dose: 1 tab Docusate Sodium (Colace) 100 mg PO BID PRN PRN Reason: Constipation Enoxaparin Sodium (Lovenox) 100 mg SUBCUT Q12HR [facility] Last Admin: 07/30/17 10:21 Dose: 100 mg Hydralazine HCl (Apresoline) 10 mg IVPUSH Q6H PRN PRN Reason: Hypertension Hydrocortisone (Hydrocortisone 1% Crm) 0 gm TOP Q8H [facility] Ketorolac Tromethamine (Toradol) 15 mg IVPUSH Q8H PRN PRN Reason: Pain Stop: 08/04/17 03:01 Last Admin: 07/30/17 13:33 Dose: 15 mg Levothyroxine Sodium (Synthroid) 50 mcg PO DAILY [facility] Last Admin: 07/30/17 10:19 Dose: 50 mcg Losartan Potassium (Cozaar) 25 mg PO DAILY [facility] Last Admin: 07/30/17 10:18 Dose: 25 mg Magnesium Sulfate (Pharmacy To Dose - Magnesium Replacement) 1 dose .XX ASDIRECTED [facility] Metoprolol Succinate (Toprol Xl) 100 mg PO DAILY [facility] Last Admin: 07/30/17 10:18 Dose: 100 mg Metoprolol Tartrate (Lopressor) 5 mg IVPUSH Q4H PRN PRN Reason: Tachycardia Multivitamins (Thera) 1 each PO DAILY [facility] Last Admin: 07/30/17 10:18 Dose: 1 each Nitroglycerin (Nitrostat) 0.4 mg SL ASDIRECTED PRN PRN Reason: Chest Pain Ondansetron HCl (Zofran Odt) 4 mg PO Q6H PRN PRN Reason: nausea, able to take PO Ondansetron HCl (Zofran) 4 mg IV Q6H PRN PRN Reason: Nausea/Vomiting Oxybutynin Chloride (Oxybutynin Er) 10 mg PO BEDTIME [facility] Last Admin: 07/29/17 23:25 Dose: Not Given Pantoprazole Sodium (Protonix) 40 mg PO BEDTIME [facility] Last Admin: 07/29/17 22:01 Dose: Not Given Ptom- Biotin 1000mcg 1 each PO DAILY [facility] Last Admin: 07/30/17 10:33 Dose: Not Given Colestipol 1 Gm 0 each PO BID [facility] Last Admin: 07/30/17 13:35 Dose: Not Given Ptom: [place]-3 Krill (Oil 300mg) 1 each PO DAILY [facility] Last Admin: 07/30/17 10:33 Dose: Not Given Polyethylene Glycol (Miralax) 17 gm PO DAILY PRN PRN Reason: Constipation Potassium Chloride (Pharmacy To Dose - Potassium Replacement) 1 dose .XX ASDIRECTED [facility] Potassium Chloride (Klor-Con 10) 10 meq PO DAILY [facility] Last Admin: 07/30/17 10:19 Dose: 10 meq Prochlorperazine Maleate (Compazine) 10 mg PO QID PRN PRN Reason: Nausea Senna/Docusate Sodium (Senna Plus) 1 tab PO BID PRN PRN Reason: Constipation Sodium Chloride (Saline Flush) 10 ml FLUSH ONETIME PRN PRN Reason: Keep Vein Open Last Admin: 07/29/17 12:33 Dose: 10 ml Discontinued Medications Acetaminophen (Tylenol) 650 mg PO NOW ONE Stop: 07/29/17 11:59 Last Admin: 07/29/17 12:49 Dose: 650 mg Aspirin (Aspirin) 324 mg PO ONETIME ONE Stop: 07/29/17 10:52 Last Admin: 07/29/17 11:38 Dose: Not Given Bumetanide (Bumex) 0.5 mg IVPUSH ONETIME ONE Stop: 07/29/17 16:33 Last Admin: 07/29/17 17:05 Dose: 0.5 mg Clonidine HCl (Catapres) 0.1 mg PO ONETIME ONE Stop: 07/29/17 14:38 Last Admin: 07/29/17 15:02 Dose: 0.1 mg Hydralazine HCl (Apresoline) 10 mg IVPUSH ONETIME ONE Stop: 01/10/18 16:33 Last Admin: 07/29/17 17:08 Dose: 10 mg Hydralazine HCl (Apresoline) 10 mg IVPUSH Q6H PRN PRN Reason: Hypertension Sodium Chloride (Normal Saline) 1,000 mls @ 250 mls/hr IV ONETIME ONE Stop: 07/29/17 15:01 Last Admin: 07/29/17 11:35 Dose: 250 mls/hr Sodium Chloride (Normal Saline) 100 mls @ 75 mls/hr IV ASDIRECTED [facility] Last Admin: 07/29/17 12:33 Dose: 75 mls/hr Iopamidol (Isovue-370 (76%)) 100 ml IVPUSH ONETIME ONE Stop: 07/29/17 12:24 Last Admin: 07/29/17 12:33 Dose: 100 ml Ketorolac Tromethamine (Toradol) 15 mg IM ONETIME ONE Stop: 07/29/17 17:43 Last Admin: 07/29/17 18:24 Dose: Not Given Ketorolac Tromethamine (Toradol) 15 mg IVPUSH ONETIME ONE Stop: 07/29/17 18:24 Last Admin: 07/29/17 18:55 Dose: 15 mg Levothyroxine Sodium (Synthroid) 50 mcg PO ACBREAKFAST [facility] Non-Formulary Medication (Ondansetron Hcl) 8 mg PO TID PRN PRN Reason: Nausea - Exam General: Alert, Oriented, Cooperative, No Acute Distress, Mild Distress, Other ( Morbidly Obese) HEENT: Pupils Equal, Pupils Reactive, EOMI, Mucous Membr. Moist/[place] Neck: Supple, Trachea Midline, No JVD, No Thyromegaly, Other (short and thick) Lungs: Clear to Auscultation, Normal Respiratory Effort Cardiovascular: Regular Rate, Regular Rhythm GI/Abdominal Exam: Normal Bowel Sounds, Soft, Non-Tender, No Organomegaly, No Distention, No Abnormal Bruit, No Mass (Female) Exam: Deferred Back Exam: Normal Inspection, Decreased Range of Motion Extremities: Normal Inspection, Normal Range of Motion, Non-Tender, Pedal Edema , Other (bilateral lowere extremity edema R>L). No: Leg Pain, Mottled, Redness Peripheral Pulses: 1+: Posterior Tibial (L), Posterior Tibial (R), Dorsalis Pedis (L), Dorsalis Pedis (R) Skin: Warm, Dry, Intact Neurological: No New Focal Deficit Psy/Mental Status: Alert, Normal Affect, Normal Mood - Problem List Review Problem List Initiated/Reviewed/Updated: Yes - My Orders Last 24 Hours: My Active Orders 07/29/17 16:33 Patient Status [ADT] Routine 07/29/17 20:41 Nitroglycerin [Nitrostat] 0.4 mg SL ASDIRECTED PRN Prochlorperazine [Compazine] 10 mg PO QID PRN 07/29/17 21:00 Oxybutynin [Oxybutynin ER] 10 mg PO BEDTIME Pantoprazole [ProTONIX] 40 mg PO BEDTIME Patient's Own Medication [Ptom] 0 each PO BID 07/30/17 09:00 Calcium Carbonate/Vitamin D3 [Calcium Carbonate/Vitamin D 1500 MG-200 Unit] 1 tab PO DAILY Levothyroxine [Synthroid] 50 mcg PO DAILY Losartan [Cozaar] 25 mg PO DAILY Metoprolol Succinate [Toprol XL] 100 mg PO DAILY Multivitamins,Therapeutic [Thera] 1 each PO DAILY Patient's Own Medication [Ptom] 1 each PO DAILY Patient's Own Medication [Ptom] 1 each PO DAILY Potassium Chloride [Klor-Con 10] 10 meq PO DAILY 07/30/19 08:00 Hydrocortisone [Hydrocortisone 1% Crm] 0 gm TOP Q8H - Plan Plan:: I/P: Acute: Pulmonary embolism,Stable -Chest pain, Dyspnea - especially on exertion, Pulse Ox 92% on arrival -Risk factor: Adenocarcinoma of the breast 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 -Has been having leg tenderness, swelling, and edema for some time on and off - Duplex US ordered for tomorrow -Likely directly related to CA but will query DVT as well -D-Dimer 9.68, CTA positive - See radiology report for full details -Lovenox 100mg BID (1mg/kg) -Will likely need 6-12 months treatment if not longer -Will need PCP/oncology f/u post-discharge -She refuses opioid pain medications - will utilize tylenol and toradol for now -Troponin negative Malignant HTN, Improved -BP 248/119 in ED -Pt states she normally runs in 160[address] systolic [address] Handley is aware of this -Catapres 0.1mg PO given in ED -Hydralazine 10mg IVP PRN for SBP >170 -Home HTN medications -Will need f/u with PCP/oncology as BP should likely be lower at baseline Leg Pain/Edema -Reports this has been an ongoing issue for several weeks and waxes/wanes -Reports several prior peripheral vascular ultrasounds in past -Possibly related to cancer history -No hx/o heart failure -12-lead in ED Showed LVH, left atrial enlargement -Echo ordered -Bumex 0.5mg BID-refused. Was told by Dr. Handley to avoid fluid pill. We agreed to fluid and salt restriction -Monitor kidney function Medical Non-Compliance Chronic: Impaired vision CAD - stable HLD HTN - as above GERD - stable Recurrent UTI Arthritis Hypothyroidism - TSH/Free normal Obesity - BMI 40.1 Anemia - stable Breast Adenocarcinoma with mets to left lung and lymph nodes eczema Plan: She is clinically better CM/SW for discharge planning - family has some concerns over cost of medications Continue PT/OT Thyroid panel normal Completed 2D echo-awaiting final report DVT prophylaxis - Lovenox for PE treatment Routine AM labs Other orders as indicated above Possible d/c in AM Code status: Full Code. Her PCP is Dr. Mock at [facility]. Oncologist is Dr. Handley, however he is leaving and she is switching oncologists.
[2017-07-30] MEDS: Oxybutynin 5 MG Tab.ER PO SCH (20:35)
[2017-07-30] MEDS: Pantoprazole 40 MG Tab.CR PO SCH ×2 (20:38→20:43)
[2017-07-30] MEDS ORDERED: cloNIDine 0.2 MG/Day Transdermal Patch TRDERM SCH (23:00)
[2017-07-31] MEDS: Metoprolol Succinate 50 MG Tab.ER PO SCH (08:36)
[2017-07-31] MEDS: Losartan 25 MG Tab PO SCH (08:37)
[2017-07-31] MEDS: Multivitamins,Therapeutic Tab PO SCH (08:37)
[2017-07-31] MEDS: Multivitamins with Minerals/Folic Acid/Lutein/Zeaxanth Tab PO SCH ×2 (08:37→09:54)
[2017-07-31] MEDS: Potassium Chloride 10 MEQ Tab.ER PO SCH (08:37)
[2017-07-31] MEDS: Levothyroxine 50 MCG Tab PO SCH (08:37)
[2017-07-31] MEDS: Calcium Carbonate/Vitamin D3 600 MG-200 Units Tab PO SCH ×2 (08:37→09:54)
[2017-07-31] MEDS: Aspirin 81 MG Tab.EC PO SCH ×2 (08:38→09:54)
[2017-07-31] MEDS: Bumetanide 1 MG/4 ML MDV IVPUSH SCH (08:38)
[2017-07-31] MEDS: Enoxaparin 100 MG/1 ML Syringe SUBCUT SCH (08:38)
[2017-07-31] MEDS: OMEGA KRILL OIL PO SCH (08:40)
[2017-07-31] MEDS: BIOTIN 1000 MCG PO SCH (08:40)
[2017-07-31 08:42] VITALS: BP 169/93
--- NOTE | 2017-07-31 09:34 | PCM.DCSUM1 ---
Discharge Summary - Hospital Course Brief History: Antonella Cortez is a 67 yo female who since her ED today with chest pain. She reports that this morning she has had similar pains previously. It is worse with movement and breathing,/on exhalation. - Discharge Data Discharge Date: 07/31/17 Discharge Disposition: Home, Self-Care 01 Condition: Good - Discharge Diagnosis/Problem(s) (1) Peripheral edema SNOMED Code(s): 531507148 ICD Code: R60.9 - EDEMA, UNSPECIFIED Status: Chronic (2) Breast CA SNOMED Code(s): 972791953 ICD Code: C50.919 - MALIGNANT NEOPLASM OF UNSP SITE OF UNSPECIFIED FEMALE BREAST Status: Chronic Qualifiers: Breast location: unspecified site of breast Patient sex: female Laterality: left (3) Malignant hypertension SNOMED Code(s): 41762393 ICD Code: I10 - ESSENTIAL (PRIMARY) HYPERTENSION Status: Resolved Priority: High (4) Pulmonary embolism SNOMED Code(s): 15943527 ICD Code: I26.99 - OTHER PULMONARY EMBOLISM WITHOUT ACUTE COR PULMONALE Status: Chronic Priority: High Qualifiers: Pulmonary embolism type: other Chronicity: acute Acute cor pulmonale presence: without acute cor pulmonale Qualified Code(s): I26.99 - Other pulmonary embolism without acute cor pulmonale (5) Morbid obesity with BMI of 40.0-44.9, adult SNOMED Code(s): 608805877 ICD Code: E66.01 - MORBID (SEVERE) OBESITY DUE TO EXCESS CALORIES; Z68.41 - BODY MASS INDEX (BMI) 40.0-44.9, ADULT Status: Chronic Priority: Low - Patient Summary/Data Operative Procedure(s) Performed: None Complications: None Consults: Consultations 07/29/17 17:42 Consult to Case Management [CONS] Routine Consult to Way Inspector [CONS] Routine OT Evaluation and Treatment [CONS] Routine PT Evaluation and Treatment [CONS] Routine Labs Pending at D/C: None Recommended Follow-up Testing/Procedures: None Planned Operative Procedure(s) after DC: None Hospital Course: Patient was primarily admitted for medical management of pulmonary embolism which we felt secondary to her underlying malignancy. She carried a past medical hx/o stage IV breast cancer. Upon admission she was found to have blood clot on Chest CTA. She was put on lovenox for treatment and provided narcotics for pain management. Her hospital course was complicated by malignant hypertension but she responded well with treatment. The rest of her chronic medical illness remained stable during this admission. Patient was stable on discharge. She was advised to check her blood pressure at last 3x a day/3-4 times week and show log to her family doctor on follow up appointment. She was further advised to follow up with a new cancer doctor as scheduled. Patient expressed understanding and in agreement with the plans as discussed above. All questions were answered. - Patient Instructions Diet: Usual Diet as Tolerated, Low Sodium Driving: Do Not Drive Showering/Bathing: May Shower Notify Provider of: Fever, Increased Pain, Swelling and Redness, Nausea and/or Vomiting Other/Special Instructions: - Please take new medication as directed. - Resume all home medications. - Watch you fluid intake to avoid fluid retention. - We recommend you check your blood pressure at least twice a day or 3-4 times a week. Show log on your follow up appointment wiht your doctor. - Please make sure you set up a follow up appointment with Dr. Hernandez. - Follow up with your doctor in 1 week. - Call or follow up with your doctor for questions or concerns after discharge - Discharge Plan Prescriptions/Med Rec: Enoxaparin [Lovenox] 100 mg SUBCUT Q12HR #60 syringe Home Medications: Home Meds Aspirin [Halfprin] 81 mg PO DAILY 03/18/16 [History] B2/Vit A,C & E/Lut/Zeaxanth/Mn [Icaps] 1 tab PO DAILY 03/18/16 [History] Colestipol HCl 1 gm PO BID 03/18/16 [History] Krill/Om-3/DHA/EPA/Phospho/Ast [[place]-3 Krill Oil 300 mg Sfgl] 1 cap PO DAILY [History] Levothyroxine [Synthroid] 50 mcg PO ACBREAKFAST 03/18/16 [History] Losartan [Cozaar] 25 mg PO DAILY 03/18/16 [History] Metoprolol Succinate [Toprol XL 100mg] 100 mg PO DAILY 03/18/16 [History] Multivitamin with Minerals [Multivitamins with Minerals] 1 tab PO DAILY [History] Nitroglycerin 0.4 mg SL ASDIRECTED PRN 03/18/16 [History] Omeprazole 20 mg PO ACBREAKFAST 03/18/16 [History] Oxybutynin [Oxybutynin ER] 10 mg PO BEDTIME 03/18/16 [History] Biotin 1,000 mcg PO DAILY 04/27/16 [History] Calcium Carbonate/Vitamin D3 [Calcium 500 + Vit D 400 Tablet] 400 - 500 mg PO DAILY 04/27/16 [History] Hydrocortisone [Anusol-HC] 30 gm RC Q8H #1 cream..g. 04/27/16 [Rx] Ondansetron HCl [Zofran] 8 mg PO TID PRN 07/29/17 [History] Potassium Chloride 10 meq PO DAILY 07/29/17 [History] Prochlorperazine [Compazine] 10 mg PO QID PRN 07/29/17 [History] Enoxaparin [Lovenox] 100 mg SUBCUT Q12HR #60 syringe 07/31/17 [Rx] Patient Handouts: Pulmonary Embolism, How and Where to Give Subcutaneous Enoxaparin Injections, Hypertension Referrals: Stacey Huggins MD [Primary Care Provider] - - Discharge Summary/Plan Comment DC Time >30 min.: Yes (45 mins) Discharge Summary/Plan Comment: Discharge to Home - General Info Date of Service: 07/31/17 Admission Dx/Problem (Free Text: Admission Diagnosis/Problem Admission Diagnosis/Problem Pulmonary embolism Subjective Update: Follow Up Functional Status: Reports: Pain Controlled, Tolerating Diet, Ambulating, Urinating. Denies: New Symptoms - Review of Systems General: Denies: Fever, Weakness, Fatigue, Malaise, Chills HEENT: Reports: No Symptoms Pulmonary: Denies: Shortness of Breath Cardiovascular: Reports: Edema. Denies: Chest Pain, Palpitations, Dyspnea on Exertion, Lightheadedness Gastrointestinal: Denies: Abdominal Pain, Nausea, Vomiting Genitourinary: Reports: No Symptoms Musculoskeletal: Reports: No Symptoms Skin: Denies: Cyanosis, Mottled, Pallor, Diaphoresis, Pruritis, Rash Neurological: Denies: Confusion, Difficulty Walking, Weakness, Gait Disturbance Psychiatric: Denies: Depression, Anxiety, Agitation, Hallucinations Systems Review Comment: No overnight or acute issues. She is doing relatively well. She reports no new complaints. - Patient Data Vitals - Most Recent: Last Vital Signs Temp 36.7 C 01/12/18 08:14 Pulse 72 07/31/17 08:36 Resp 16 07/31/17 08:14 BP 169/93 H 07/31/17 08:37 Pulse Ox 92 L 07/31/17 08:14 Weight - Most Recent: 100.335 kg I&O - Last 24 hours: Intake & Output 07/30/17 07/31/17 07/31/17 22:59 06:59 14:59 Intake Total 240 400 Output Total 2750 Balance 240 -2350 Lab Results - Last 24 hrs: Laboratory Results - last 24 hr 07/31/17 07/31/17 Range/Units 05:43 05:43 WBC 7.32 (3.98-10.04) K/mm3 RBC 3.65 L (3.98-5.22) M/mm3 Hgb 11.1 L (11.2-15.7) gm/L Hct 35.1 (34.1-44.9) % MCV 96.2 H (79.4-94.8) fl MCH 30.4 (25.6-32.2) pg MCHC 31.6 L (32.2-35.5) g/dl RDW Std Deviation 54.6 H (36.4-46.3) fL Plt Count 361 (182-369) K/mm3 MPV 11.0 (9.4-12.3) fl Neut % (Auto) 53.3 (34.0-71.1) % Lymph % (Auto) 21.7 (19.3-51.7) % Esmeralda % (Auto) 18.0 H (4.7-12.5) % Eos % (Auto) 5.7 (0.7-5.8) Baso % (Auto) 1.2 (0.1-1.2) % Neut # (Auto) 3.89 (1.56-6.13) K/mm3 Lymph # (Auto) 1.59 (1.18-3.74) K/mm3 Esmeralda # (Auto) 1.32 H (0.24-0.36) K/mm3 Eos # (Auto) 0.42 H (0.04-0.36) K/mm3 Baso # (Auto) 0.09 H (0.01-0.08) K/mm3 Manual Slide Review Abnormal smear Sodium 139 (136-145) mEq/L Potassium 3.9 (3.5-5.1) mEq/L Chloride 104 (98-107) mEq/L Carbon Dioxide 25 (21-32) mEq/L Anion Gap 13.9 (5-15) BUN 25 H (7-18) mg/dL Creatinine 1.4 H (0.55-1.02) mg/dL Est Cr Clr Drug Dosing 29.99 mL/min Estimated GFR (MDRD) 37 (>60) mL/min BUN/Creatinine Ratio 17.9 (14-18) Glucose 110 (80-115) mg/dL Calcium 8.8 (8.5-10.1) mg/dL Magnesium 2.0 (1.8-2.4) mg/dl C-Reactive Protein 8.1 H* (<1.0) mg/dL Med Orders - Current: Current Medications Acetaminophen (Tylenol) 650 mg PO Q4H PRN PRN Reason: Pain (Mild 1-3)/fever Albuterol/Ipratropium (Duoneb 3.0-0.5 Mg/3 Ml) 3 ml NEB Q4H PRN PRN Reason: Shortness Of Breath/wheezing Aspirin (Halfprin) 81 mg PO DAILY [facility] Bisacodyl (Dulcolax) 5 mg PO DAILY PRN PRN Reason: Constipation Bumetanide (Bumex) 0.5 mg IVPUSH BID [facility] Last Admin: 07/31/17 08:38 Dose: 0.5 mg Calcium Carbonate (Calcium Carbonate/Vitamin D 1500 Mg-200 Unit) 1 tab PO DAILY [facility] Last Admin: 07/30/17 10:18 Dose: 1 tab Clonidine HCl (Catapres Tts-2) 0.2 mg TRDERM Q7D [facility] Last Admin: 07/31/17 00:12 Dose: Not Given Docusate Sodium (Colace) 100 mg PO BID PRN PRN Reason: Constipation Enoxaparin Sodium (Lovenox) 100 mg SUBCUT Q12HR [facility] Last Admin: 07/31/17 08:38 Dose: 100 mg Hydralazine HCl (Apresoline) 10 mg IVPUSH Q6H PRN PRN Reason: Hypertension Hydrocortisone (Hydrocortisone 1% Crm) 0 gm TOP Q8H [facility] Ketorolac Tromethamine (Toradol) 15 mg IVPUSH Q8H PRN PRN Reason: Pain Stop: 08/04/17 03:01 Last Admin: 07/30/17 13:33 Dose: 15 mg Levothyroxine Sodium (Synthroid) 50 mcg PO DAILY [facility] Last Admin: 07/31/17 08:37 Dose: 50 mcg Losartan Potassium (Cozaar) 25 mg PO DAILY [facility] Last Admin: 07/31/17 08:37 Dose: 25 mg Magnesium Sulfate (Pharmacy To Dose - Magnesium Replacement) 1 dose .XX ASDIRECTED [facility] Metoprolol Succinate (Toprol Xl) 100 mg PO DAILY [facility] Last Admin: 07/31/17 08:36 Dose: 100 mg Metoprolol Tartrate (Lopressor) 5 mg IVPUSH Q4H PRN PRN Reason: Tachycardia Miscellaneous Information (Remove Patch) 1 ea TRDERM Q7D [facility] Multivitamins (Thera) 1 each PO DAILY [facility] Last Admin: 07/31/17 08:37 Dose: 1 each Nitroglycerin (Nitrostat) 0.4 mg SL ASDIRECTED PRN PRN Reason: Chest Pain Ondansetron HCl (Zofran Odt) 4 mg PO Q6H PRN PRN Reason: nausea, able to take PO Ondansetron HCl (Zofran) 4 mg IV Q6H PRN PRN Reason: Nausea/Vomiting Oxybutynin Chloride (Oxybutynin Er) 10 mg PO BEDTIME [facility] Last Admin: 07/30/17 20:35 Dose: 10 mg Pantoprazole Sodium (Protonix) 40 mg PO BEDTIME [facility] Last Admin: 07/30/17 20:43 Dose: 40 mg Ptom- Biotin 1000mcg 1 each PO DAILY [facility] Last Admin: 07/31/17 08:40 Dose: Not Given Colestipol 1 Gm 0 each PO BID [facility] Last Admin: 07/31/17 08:40 Dose: Not Given Ptom: [place]-3 Krill (Oil 300mg) 1 each PO DAILY [facility] Last Admin: 07/31/17 08:40 Dose: Not Given Polyethylene Glycol (Miralax) 17 gm PO DAILY PRN PRN Reason: Constipation Potassium Chloride (Pharmacy To Dose - Potassium Replacement) 1 dose .XX ASDIRECTED [facility] Potassium Chloride (Klor-Con 10) 10 meq PO DAILY [facility] Last Admin: 07/31/17 08:37 Dose: 10 meq Prochlorperazine Maleate (Compazine) 10 mg PO QID PRN PRN Reason: Nausea Senna/Docusate Sodium (Senna Plus) 1 tab PO BID PRN PRN Reason: Constipation Sodium Chloride (Saline Flush) 10 ml FLUSH ONETIME PRN PRN Reason: Keep Vein Open Last Admin: 07/29/17 12:33 Dose: 10 ml Vit A/Vit C/Vit E/Selen/Cu/Zn/Lutei (Icaps Mv) 1 tab PO DAILY [facility] Discontinued Medications Acetaminophen (Tylenol) 650 mg PO NOW ONE Stop: 07/29/17 11:59 Last Admin: 07/29/17 12:49 Dose: 650 mg Aspirin (Aspirin) 324 mg PO ONETIME ONE Stop: 07/29/17 10:52 Last Admin: 07/29/17 11:38 Dose: Not Given Bumetanide (Bumex) 0.5 mg IVPUSH ONETIME ONE Stop: 07/29/17 16:33 Last Admin: 07/29/17 17:05 Dose: 0.5 mg Clonidine HCl (Catapres) 0.1 mg PO ONETIME ONE Stop: 07/29/17 14:38 Last Admin: 07/29/17 15:02 Dose: 0.1 mg Hydralazine HCl (Apresoline) 10 mg IVPUSH ONETIME ONE Stop: 07/29/17 16:33 Last Admin: 07/29/17 17:08 Dose: 10 mg Hydralazine HCl (Apresoline) 10 mg IVPUSH Q6H PRN PRN Reason: Hypertension Sodium Chloride (Normal Saline) 1,000 mls @ 250 mls/hr IV ONETIME ONE Stop: 07/29/17 15:01 Last Admin: 07/29/17 11:35 Dose: 250 mls/hr Sodium Chloride (Normal Saline) 100 mls @ 75 mls/hr IV ASDIRECTED [facility] Last Admin: 07/29/17 12:33 Dose: 75 mls/hr Iopamidol (Isovue-370 (76%)) 100 ml IVPUSH ONETIME ONE Stop: 07/29/17 12:24 Last Admin: 07/29/17 12:33 Dose: 100 ml Ketorolac Tromethamine (Toradol) 15 mg IM ONETIME ONE Stop: 07/29/17 17:43 Last Admin: 07/29/17 18:24 Dose: Not Given Ketorolac Tromethamine (Toradol) 15 mg IVPUSH ONETIME ONE Stop: 07/29/17 18:24 Last Admin: 07/29/17 18:55 Dose: 15 mg Levothyroxine Sodium (Synthroid) 50 mcg PO ACBREAKFAST [facility] Non-Formulary Medication (Ondansetron Hcl) 8 mg PO TID PRN PRN Reason: Nausea - Exam General: Reports: Alert, Oriented, Cooperative, No Acute Distress HEENT: Reports: Pupils Equal, Pupils Reactive, EOMI, Mucous Membr. Moist/[place] Neck: Reports: Supple, Trachea Midline, No JVD, No Thyromegaly Lungs: Reports: Clear to Auscultation, Normal Respiratory Effort Cardiovascular: Reports: Regular Rate, Regular Rhythm GI/Abdominal Exam: Normal Bowel Sounds, Soft, Non-Tender, No Organomegaly, No Distention, No Abnormal Bruit (Female) Exam: Deferred Rectal (Female) Exam: Deferred Back Exam: Reports: Normal Inspection, Decreased Range of Motion Extremities: Normal Inspection, Normal Range of Motion, Non-Tender, No Pedal Edema, Normal Capillary Refill Skin: Reports: Warm, Dry, Intact Neurological: Reports: No New Focal Deficit Psy/Mental Status: Reports: Alert, Normal Affect, Normal Mood *Q Meaningful Use (DIS) - VTE *Q VTE Criteria *Q: - Stroke *Q Stroke Criteria *Q: - AMI *Q AMI Criteria *Q:
[2019-07-30] MEDS ORDERED: Hydrocortisone 1% Crm 30 GM Tube TOP SCH (08:00)
== END 2017-07-31 12:45 | disposition home or self-care (01) | DRG 176 ==
LOC: JD.ED 10:23 → JD.MS 14:55 → UNDOADMIN 14:57
PROVIDERS: ADMIT Internal Medicine; ATTEND Internal Medicine
DX: I26.99 Other pulmonary embolism without acute cor pulmonale (principal); C78.00 Secondary malignant neoplasm of unspecified lung; C77.9 Secondary and unspecified malignant neoplasm of lymph node, unspecified; Z68.41 Body mass index [BMI] 40.0-44.9, adult; I25.10 Atherosclerotic heart disease of native coronary artery without angina pectoris; I10 Essential (primary) hypertension; E78.00 Pure hypercholesterolemia, unspecified; C50.919 Malignant neoplasm of unspecified site of unspecified female breast; E78.5 Hyperlipidemia, unspecified; K21.9 Gastro-esophageal reflux disease without esophagitis; K44.9 Diaphragmatic hernia without obstruction or gangrene; M19.90 Unspecified osteoarthritis, unspecified site; E03.9 Hypothyroidism, unspecified; E66.01 Morbid (severe) obesity due to excess calories; D64.9 Anemia, unspecified; L30.9 Dermatitis, unspecified; R60.9 Edema, unspecified; H54.7 Unspecified visual loss; Z87.440 Personal history of urinary (tract) infections; Z88.8 Allergy status to other drugs, medicaments and biological substances; Z79.82 Long term (current) use of aspirin; Z79.899 Other long term (current) drug therapy
CPT/HCPCS: 36415; 71046; 71275; 80053; 81001; 84484; 85025; 85379; 86140; 87086; 93005; 96360; 96361; 99285; A9270; J7030; J7040; J7050; Q9967; 80048; 83735; 83880; 84439; 84443; 93306; 93970; 93970-26; 94760; 96523; 97161-GP; 97165-GO; 99284-25; J0360; J1642; J1650; J1885

== ENCOUNTER 2019-11-16 02:04 | Observation (INO) | payer MEDICARE, BC ==
--- NOTE | 2019-11-16 02:13 | EDM.PDOC ---
ED HPI GENERAL MEDICAL PROBLEM - General Chief Complaint: General Stated Complaint: [facility] Time Seen by Provider: 11/16/19 02:04 - History of Present Illness INITIAL COMMENTS - FREE TEXT/NARRATIVE: 69-year-old female brought into the emergency room by EMS with weakness and fatigue and generally not feeling well. Patient had chemotherapy Thursday of last week now a week ago. She is felt progressively worse since then. The first couple days were okay she had decreased appetite. Now she has quite a bit of weakness and fatigue and no appetite she is not eating or drinking very much. History of breast cancer recently became metastatic. That is why the chemotherapy was started. Patient is not aware of any fevers or chills no nausea no vomiting no diarrhea. Generalized Pain Score (Numeric/FACES): 6 - Related Data Allergies Allergy/AdvReac Type Severity Reaction Status Date / Time celecoxib [From Celebrex] Allergy Cannot Verified 11/16/19 02:09 Remember silver Allergy Blisters Verified 11/16/19 02:09 [From Tegaderm AG Mesh] venom-wasp [wasp venom] Allergy Swelling Verified 11/16/19 02:09 naproxen [From Aleve] AdvReac Severe Lightheaded Verified 11/16/19 02:09 ness atorvastatin AdvReac Muscle Verified 11/16/19 02:09 Weakness pravastatin AdvReac Muscle Verified 11/16/19 02:09 Weakness simvastatin AdvReac Muscle Verified 11/16/19 02:09 Weakness tegaderm Allergy Rash Uncoded 04/27/16 09:29 Home Meds: Home Meds Aspirin [Halfprin] 81 mg PO DAILY 03/18/16 [History] B2/Vits A,C,E/Lut/Zeaxanth/Min [Icaps] 1 tab PO DAILY 03/18/16 [History] Colestipol HCl 1 gm PO BID 03/18/16 [History] Krill/Om-3/DHA/EPA/Phospho/Ast [[place]-3 Krill Oil 300 mg Sfgl] 1 cap PO DAILY [History] Levothyroxine [Synthroid] 50 mcg PO ACBREAKFAST 03/18/16 [History] Losartan [Cozaar] 25 mg PO DAILY 03/18/16 [History] Metoprolol Succinate [Toprol XL 100mg] 100 mg PO DAILY 03/18/16 [History] Multivitamin with Minerals [Multivitamins with Minerals] 1 tab PO DAILY [History] Nitroglycerin 0.4 mg SL ASDIRECTED PRN 03/18/16 [History] Omeprazole 20 mg PO ACBREAKFAST 03/18/16 [History] Oxybutynin [Oxybutynin ER] 10 mg PO BEDTIME 03/18/16 [History] Biotin 1,000 mcg PO DAILY 04/27/16 [History] Calcium Carbonate/Vitamin D3 [Calcium 500 + Vit D 400 Tablet] 400 - 500 mg PO DAILY 04/27/16 [History] Hydrocortisone [Anusol-HC] 30 gm RC Q8H #1 cream..g. 04/27/16 [Rx] Potassium Chloride 10 meq PO DAILY 07/29/17 [History] Prochlorperazine [Compazine] 10 mg PO QID PRN 07/29/17 [History] ondansetron HCL [Zofran] 8 mg PO TID PRN 07/29/17 [History] Enoxaparin [Lovenox] 100 mg SUBCUT Q12HR #60 syringe 07/31/17 [Rx] Antiox.mv No.10/Omeg3s/Lut/[place] [I-Caps with Lutein-[place] 3 SFG] 1 tab PO DAILY 11/16/19 [History] Biotin 1,000 mcg PO DAILY 11/16/19 [History] Bumetanide [Bumex] 1 mg PO DAILY 11/16/19 [History] Cyanocobalamin (Vitamin B-12) [Vitamin B-12] 100 mcg PO DAILY 11/16/19 [History] Loperamide [Imodium] 2 mg PO BID PRN 11/16/19 [History] Magnesium Oxide 500 mg PO DAILY 11/16/19 [History] Rivaroxaban [Xarelto] 20 mg PO DAILY 11/16/19 [History] Sennosides/Docusate Sodium [Sennosides-Docusate Sodium] 8.6 - 50 mg PO DAILY [History] amLODIPine [Norvasc] 5 mg PO DAILY 11/16/19 [History] Past Medical History HEENT History: Reports: Impaired Vision Other HEENT History: wears eyeglasses Cardiovascular History: Reports: Blood Clots/VTE/DVT, CAD, High Cholesterol, Hypertension, SOB on Exertion Other Cardiovascular History: VTE is new; shortness of breath x3 weeks Respiratory History: Reports: PE, Pneumonia, Recurrent, SOB Gastrointestinal History: Reports: GERD, Hiatal Hernia, Other (See Below) Other Gastrointestinal History: diarrhea from radiation/chemo Genitourinary History: Reports: UTI, Recurrent [employer]IAN History: Reports: Musculoskeletal History: Reports: Arthritis Neurological History: Reports: None Endocrine/Metabolic History: Reports: Hypothyroidism, Obesity/BMI 30+ Hematologic History: Reports: Anemia, Blood Transfusion(s) Other Hematologic History: during chemotherapy tx Immunologic History: Reports: Other (See Below) Oncologic (Cancer) History: Reports: Breast Other Oncologic History: left sided breast cancer; bilat mastectomy Dermatologic History: Reports: Eczema - Infectious Disease History Infectious Disease History: Reports: Chicken Pox, Shingles - Past Surgical History HEENT Surgical History: Reports: Cataract Surgery GI Surgical History: Reports: Cholecystectomy Female Surgical History: Reports: Hysterectomy, Mastectomy Oncologic Surgical History: Reports: Mastectomy Social & Family History - Caffeine Use Caffeine Use: Reports: Soda ED ROS GENERAL - Review of Systems Review Of Systems: See Below Constitutional: Reports: Malaise, Weakness, Fatigue HEENT: Reports: No Symptoms Respiratory: Reports: No Symptoms Cardiovascular: Reports: No Symptoms Endocrine: Reports: No Symptoms GI/Abdominal: Reports: Decreased Appetite. Denies: Constipation, Diarrhea, Nausea, Vomiting : Reports: No Symptoms Musculoskeletal: Reports: No Symptoms Skin: Reports: No Symptoms Neurological: Reports: No Symptoms Psychiatric: Reports: No Symptoms Hematologic/Lymphatic: Reports: No Symptoms Immunologic: Reports: No Symptoms ED EXAM, GENERAL - Physical Exam Exam: See Below Exam Limited By: No Limitations General Appearance: Alert, No Apparent Distress Eye Exam: Bilateral Eye: Normal Inspection Ears: Normal External Exam, Normal Canal, Hearing Grossly Normal, Normal TMs Nose: Normal Inspection, Normal Mucosa, No Blood Throat/Mouth: Normal Inspection, Normal Lips, Normal Gums, Normal Oropharynx, Normal Voice, No Airway Compromise, Other (He is missing many teeth both on the upper and lowers). No: Normal Teeth Neck: Normal Inspection, Supple, Non-Tender, Full Range of Motion. No: Lymphadenopathy (L), Lymphadenopathy (R) Respiratory/Chest: No Respiratory Distress, Lungs Clear, Normal Breath Sounds, No Accessory Muscle Use, Chest Non-Tender Cardiovascular: Regular Rate, Rhythm, No Edema, No Murmur GI/Abdominal: Normal Bowel Sounds, Soft, Non-Tender, Other (Obese) (Female) Exam: Normal External Exam, Normal Speculum Exam, Cervical Dilatation Back Exam: Normal Inspection. No: CVA Tenderness (L), CVA Tenderness (R) Neurological: Alert, Oriented, Normal Gait Course - Vital Signs Last Recorded V/S: Last Vital Signs Temp 36.2 C 11/16/19 02:10 Pulse 74 11/16/19 02:10 Resp 16 11/16/19 02:10 BP 148/88 H 11/16/19 02:10 Pulse Ox 100 11/16/19 02:10 - Orders/Labs/Meds Orders: Active Orders 24 hr Category Date Time Status Implanted Port Access [RC] ASDIRECTED Care 11/16/19 02:41 Active Chest 1V Frontal [CR] Stat Exams 11/16/19 02:17 Taken CULTURE BLOOD [BC] Stat Lab 11/16/19 02:30 Received CULTURE BLOOD [BC] Stat Lab 11/16/19 02:42 Received UA RFX KT AND CULT IF INDIC [URIN] Stat Lab 11/16/19 02:16 Ordered Blood Culture x2 Reflex Set [OM.PC] Stat Oth 11/16/19 02:19 Ordered Labs: Laboratory Tests 11/16/19 11/16/19 11/16/19 Range/Units 02:30 02:30 02:42 WBC 1.02 L* (3.98-10.04) K/mm3 RBC 3.78 L (3.98-5.22) M/mm3 Hgb 10.6 L (11.2-15.7) gm/dl Hct 33.1 L (34.1-44.9) % MCV 87.6 D (79.4-94.8) fl MCH 28.0 (25.6-32.2) pg MCHC 32.0 L (32.2-35.5) g/dl RDW Std Deviation 50.1 H (36.4-46.3) fL Plt Count 141 L D (182-369) K/mm3 MPV 10.8 (9.4-12.3) fl Neut % (Auto) 37.2 (34.0-71.1) % Lymph % (Auto) 54.9 H (19.3-51.7) % [place] % (Auto) 2.0 L (4.7-12.5) % Eos % (Auto) 2.9 (0.7-5.8) Baso % (Auto) 1.0 (0.1-1.2) % Neut # (Auto) 0.38 L (1.56-6.13) K/mm3 Lymph # (Auto) 0.56 L (1.18-3.74) K/mm3 [place] # (Auto) 0.02 L (0.24-0.36) K/mm3 Eos # (Auto) 0.03 L (0.04-0.36) K/mm3 Baso # (Auto) 0.01 (0.01-0.08) K/mm3 Manual Slide Review Abnormal smear Sodium 136 (136-145) mEq/L Potassium 3.8 (3.5-5.1) mEq/L Chloride 102 (98-107) mEq/L Carbon Dioxide 27 (21-32) mEq/L Anion Gap 10.8 (5-15) BUN 29 H (7-18) mg/dL Creatinine 1.0 (0.55-1.02) mg/dL Est Cr Clr Drug Dosing 38.94 mL/min Estimated GFR (MDRD) 55 (>60) mL/min BUN/Creatinine Ratio 29.0 H (14-18) Glucose 116 H (83-115) mg/dL Lactic Acid 0.9 (0.4-2.0) mmol/L Calcium 8.4 L (8.5-10.1) mg/dL Total Bilirubin 0.7 (0.2-1.0) mg/dL AST 30 (15-37) U/L ALT 36 (14-59) U/L Alkaline Phosphatase 101 (46-116) U/L Total Protein 6.4 (6.4-8.2) g/dl Albumin 2.7 L (3.4-5.0) g/dl Globulin 3.7 gm/dL Albumin/Globulin Ratio 0.7 L (1-2) Meds: Medications Discontinued Medications Generic Name Dose Route Start Last Admin Trade Name Freq PRN Reason Stop Dose Admin Lactated Ringer's 1,000 mls @ 999 mls/hr 11/16/19 02:20 11/16/19 02:49 Ringers, Lactated IV 11/16/19 03:20 999 mls/hr .BOLUS ONE Administration - Re-Assessments/Exams Free Text/Narrative Re-Assessment/Exam: 11/16/19 03:59 Patient's case is concerning with the recent chemotherapy and her feeling poorly albeit she has no specific area of pain or symptom concerning for infection laboratory evaluation shows a white count of 1000.02 neutrophils are 37.2 lymphocytes 54.9 manual differential pending. Hemoglobin hematocrit 10.6 and 33.1% respectively was discussed with Dr. Tsai. The patient will be placed on observation after her urine is obtained she will be started on cefepime 2 g every 12 hours. Her chest X ray is unremarkable for acute changes blood cultures pending. Departure - Departure Time of Disposition: 04:00 Disposition: Refer to Observation Clinical Impression: Neutropenia, Dehydration - Discharge Information Sepsis Event Note - Focused Exam Vital Signs: Vital Signs Temp Pulse Resp BP Pulse Ox 11/16/19 02:10 36.2 C 74 16 148/88 H 100 Date Exam was Performed: 11/16/19 Time Exam was Performed: 04:50 - My Orders Last 24 Hours: My Active Orders 11/16/19 02:16 UA RFX KT AND CULT IF INDIC [URIN] Stat 11/16/19 02:17 Chest 1V Frontal [CR] Stat 11/16/19 02:19 Blood Culture x2 Reflex Set [OM.PC] Stat 11/16/19 02:30 CULTURE BLOOD [BC] Stat 11/16/19 02:41 Implanted Port Access [RC] ASDIRECTED 11/16/19 02:42 CULTURE BLOOD [BC] Stat - Assessment/Plan Last 24 Hours: My Active Orders 11/16/19 02:16 UA RFX KT AND CULT IF INDIC [URIN] Stat 11/16/19 02:17 Chest 1V Frontal [CR] Stat 11/16/19 02:19 Blood Culture x2 Reflex Set [OM.PC] Stat 11/16/19 02:30 CULTURE BLOOD [BC] Stat 11/16/19 02:41 Implanted Port Access [RC] ASDIRECTED 11/16/19 02:42 CULTURE BLOOD [BC] Stat
[2019-11-16] MEDS ORDERED: Lactated Ringers 1,000 ML IV ONE (02:20)
[2019-11-16] MEDS ORDERED: Sodium Chloride 0.9% 1,000 ML IV SCH (06:30)
--- NOTE | 2019-11-16 06:33 | CR ---
Chest: Portable view of the chest was obtained. Comparison: Prior chest x-ray of 07/29/[address] study of 07/29/17 2 nodules are identified within the right chest which which appear more prominent than on prior study. Largest nodule measures 2.9 cm. 3rd nodule noted within the right upper lung overlying a right-sided infusion port which appears stable. Nodule is noted with the left midlung which is more prominent. Heart size is normal. Tortuous thoracic aorta is seen. Bony structures are intact. Impression: 1. Increasing size of nodules within both sides of the chest from prior exam presumably due to worsening metastatic disease. 2. No acute parenchymal process is otherwise seen. Diagnostic code #9 This report was dictated in MDT
[2019-11-16] MEDS ORDERED: Ondansetron 4 MG/2 ML SDV IV PRN (07:48)
[2019-11-16] MEDS ORDERED: Bumetanide 1 MG Tab PO SCH ×2 (08:00→12:00)
--- NOTE | 2019-11-16 08:08 | PCM.HP.2 ---
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 Patient does have metastatic breast cancer with recently discovered nodules in her lungs. She states that she had chemotherapy this past Thursday and since then has felt very poor. She reports that this is a new dosing of medication as they are now trying to treat her pulmonary nodules. She reports that she is on palliative chemotherapy and will continue with this until she dies. She reports that she has had decreased appetite, weakness, fatigue, but no fevers, nausea, vomiting. She does report that she has had worsening chills and is also had diarrhea for the past 1 to 2 days. In the ED afebrile with a temp of 36.2 Celsius. Pulse 74. Respirations 16. Blood pressure 148/88 pulse ox 100%. CBC is obtained and shows that the patient has a white count of 1.02, hemoglobin of 10.6, platelet count of 141, neutrophils of 37.2%. Sodium is on the low end of normal at 136. Potassium is 3.8. Chloride 102. Carbon oxide 27. Anion gap 10.8. BUN is high at 29. Creatinine 1.0. GFR is 55. Glucose is 116. Lactic acid 0.9. Calcium is 8.4. Bilirubin 0.7. AST is 30, ALT 36, alkaline phosphatase 101. Protein is 6.4. Albumin is quite low at 2.7. She is given a 1 L bolus of LR and started on cefepime 2 g every 12 hours. Chest x-ray was obtained and interpreted by Dr. Hayes as "1. Increasing size of nodules within both sides of the chest from prior exam presumably due to worsening metastatic disease. 2. No acute parenchymal process is otherwise seen. Started on NS at 100 mils an hour. She carries a history of VTE, CAD, HLD, hypertension, shortness of breath on exertion, PE, recurrent pneumonia, GERD, hiatal hernia, diarrhea secondary to therapy, recurrent UTI, arthritis, hypothyroidism, obesity, anemia, left breast cancer with bilateral mastectomy, eczema, cancer mets to lung. She is a full code. Her PCP is Dr. Rey. Oncologist is Dr. Handley. Generalized Pain Score (Numeric/FACES): 6 - Related Data Allergies/Adverse Reactions: Allergies Allergy/AdvReac Type Severity Reaction Status Date / Time celecoxib [From Celebrex] Allergy Cannot Verified 11/16/19 02:09 Remember silver Allergy Blisters Verified 11/16/19 02:09 [From Tegaderm AG Mesh] venom-wasp [wasp venom] Allergy Swelling Verified 11/16/19 02:09 naproxen [From Aleve] AdvReac Severe Lightheaded Verified 11/16/19 02:09 ness atorvastatin AdvReac Muscle Verified 11/16/19 02:09 Weakness pravastatin AdvReac Muscle Verified 11/16/19 02:09 Weakness simvastatin AdvReac Muscle Verified 11/16/19 02:09 Weakness tegaderm Allergy Rash Uncoded 04/27/16 09:29 Home Medications: Home Meds Aspirin [Halfprin] 81 mg PO DAILY 03/18/16 [History] Levothyroxine [Synthroid] 50 mcg PO ACBREAKFAST 03/18/16 [History] Losartan [Cozaar] 25 mg PO DAILY 03/18/16 [History] Metoprolol Succinate [Toprol XL 100mg] 100 mg PO DAILY 03/18/16 [History] Multivitamin with Minerals [Multivitamins with Minerals] 1 tab PO DAILY [History] Nitroglycerin 0.4 mg SL ASDIRECTED PRN 03/18/16 [History] Omeprazole 20 mg PO QPM 03/18/16 [History] Oxybutynin [Oxybutynin ER] 10 mg PO BEDTIME 03/18/16 [History] Calcium Carbonate/Vitamin D3 [Calcium 500 + Vit D 400 Tablet] 400 - 500 mg PO DAILY 04/27/16 [History] Potassium Chloride 10 meq PO DAILY 07/29/17 [History] Prochlorperazine [Compazine] 10 mg PO QID PRN 07/29/17 [History] ondansetron HCL [Zofran] 8 mg PO TID PRN 07/29/17 [History] Antiox.mv No.10/Omeg3s/Lut/[place] [I-Caps with Lutein-[place] 3 SFG] 1 tab PO DAILY 11/16/19 [History] Biotin 1,000 mcg PO DAILY 11/16/19 [History] Bumetanide [Bumex] 1 mg PO Q48H 11/16/19 [History] C-Lido/Diph/Antacid 10 ml PO QID PRN 11/16/19 [History] Cyanocobalamin (Vitamin B-12) [Vitamin B-12] 500 mcg PO DAILY 11/16/19 [History] Diclofenac Gel 1% 2 gram TOP QID 11/16/19 [History] Loperamide [Imodium] 2 mg PO BID PRN 11/16/19 [History] Magnesium Oxide 500 mg PO DAILY 11/16/19 [History] Rivaroxaban [Xarelto] 20 mg PO DAILY 11/16/19 [History] Sennosides/Docusate Sodium [Sennosides-Docusate Sodium] 8.6 - 50 mg PO DAILY [History] amLODIPine [Norvasc] 5 mg PO DAILY 11/16/19 [History] Past Medical History HEENT History: Reports: Impaired Vision Other HEENT History: wears eyeglasses Cardiovascular History: Reports: Blood Clots/VTE/DVT, CAD, High Cholesterol, Hypertension, SOB on Exertion Other Cardiovascular History: VTE is new; shortness of breath x3 weeks Respiratory History: Reports: PE, Pneumonia, Recurrent, SOB Gastrointestinal History: Reports: GERD, Hiatal Hernia, Other (See Below) Other Gastrointestinal History: diarrhea from radiation/chemo Genitourinary History: Reports: UTI, Recurrent 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: Musculoskeletal History: Reports: Arthritis Neurological History: Reports: None Endocrine/Metabolic History: Reports: Hypothyroidism, Obesity/BMI 30+ Hematologic History: Reports: Anemia, Blood Transfusion(s) Other Hematologic History: during chemotherapy tx Immunologic History: Reports: Other (See Below) Oncologic (Cancer) History: Reports: Breast Other Oncologic History: left sided breast cancer; bilat mastectomy Dermatologic History: Reports: Eczema - Infectious Disease History Infectious Disease History: Reports: Chicken Pox, Shingles - Past Surgical History HEENT Surgical History: Reports: Cataract Surgery GI Surgical History: Reports: Cholecystectomy Female Surgical History: Reports: Hysterectomy, Mastectomy Oncologic Surgical History: Reports: Mastectomy Social & Family History - Tobacco Use Smoking Status *Q: Never Smoker - Caffeine Use Caffeine Use: Reports: Soda - Recreational Drug Use Recreational Drug Use: No H&P Review of Systems - Review of Systems: Review Of Systems: See Below General: Reports: No Symptoms, Malaise, Weakness, Fatigue. Denies: Fever, Chills HEENT: Reports: No Symptoms, Other (Poor dentation. Upper number 10 tooth broken. No obvious signs of infection or abscess however patien reports occasional pain. States this tooth will be extracted by surgeon in the future. ) . Denies: Headaches, Sore Throat Pulmonary: Reports: No Symptoms. Denies: Shortness of Breath, Wheezing, Cough, Sputum Cardiovascular: Reports: Dyspnea on Exertion (chronic ). Denies: Chest Pain, Palpitations, Edema Gastrointestinal: Reports: Diarrhea. Denies: Abdominal Pain, Black Stool, Bloody Stool, Constipation, Nausea, Vomiting Genitourinary: Reports: No Symptoms. Denies: Dysuria, Frequency, Pain, Retention Musculoskeletal: Reports: Shoulder Pain (chronic ) Skin: Reports: Wound (wound in skin fold on left abdomen. No noted drainage, however patient reports this comes and goes with possibly purulent drainage, however she is unsure. Groin inflammation noted on left side as well with no signs of infectoin, drainage, abscess, etc. ). Denies: Cyanosis Psychiatric: Reports: No Symptoms Neurological: Reports: Numbness (bilateral feet), Pre-Existing Deficit ( Diminished sensation to bilateral feet ), Tingling (bilateral feet ), Difficulty Walking (2/2 weakness), Weakness. Denies: Confusion, Dizziness, Headache, Seizure, Syncope, Trouble Speaking, Gait Disturbance Hematologic/Lymphatic: Reports: Anemia (chronic ) Immunologic: Reports: No Symptoms Exam - Exam Exam: See Below - Vital Signs Vital Signs: Last Vital Signs Temp 97.9 F 11/16/19 04:51 Pulse 85 11/16/19 04:51 Resp 15 11/16/19 04:51 BP 123/66 11/16/19 04:51 Pulse Ox 97 11/16/19 04:51 Weight: 217 lb 8 oz - Exam Quality Assessment: DVT Prophylaxis General: Alert, Oriented, Cooperative. No: Mild Distress HEENT: Conjunctiva Clear, EACs Clear, Mucosa Moist & [place], Nares Patent, Posterior Pharynx Clear, PERRLA Neck: Supple, Trachea Midline Lungs: Clear to Auscultation, Normal Respiratory Effort Cardiovascular: Regular Rate, Regular Rhythm, Other (Port in right chest) GI/Abdominal Exam: Normal Bowel Sounds, Soft, Non-Tender, No Distention (Female) Exam: Deferred Rectal (Female) Exam: Deferred Back Exam: Normal Inspection, Full Range of Motion Extremities: Normal Inspection, Normal Range of Motion, Non-Tender, No Pedal Edema, Normal Capillary Refill Skin: Warm, Dry, Intact Neurological: Cranial Nerves Intact (grossly ) Neuro Extensive - Mental Status: Alert, Oriented x3, Normal Mood/Affect - Patient Data Lab Results Last 24 hrs: Laboratory Results - last 24 hr 11/16/19 11/16/19 11/16/19 Range/Units 02:30 02:30 02:30 WBC 1.02 L* Cancelled (3.98-10.04) K/mm3 Corrected WBC Cancelled RBC 3.78 L (3.98-5.22) M/mm3 Hgb 10.6 L (11.2-15.7) gm/dl Hct 33.1 L (34.1-44.9) % MCV 87.6 D (79.4-94.8) fl MCH 28.0 (25.6-32.2) pg MCHC 32.0 L (32.2-35.5) g/dl RDW Std Deviation 50.1 H (36.4-46.3) fL Plt Count 141 L D (182-369) K/mm3 MPV 10.8 (9.4-12.3) fl Neut % (Auto) Cancelled Lymph % (Auto) Cancelled Powell % (Auto) Cancelled Eos % (Auto) Cancelled Baso % (Auto) Cancelled Neut # (Auto) Cancelled Lymph # (Auto) Cancelled Powell # (Auto) Cancelled Eos # (Auto) Cancelled Baso # (Auto) Cancelled Neutrophils % (Manual) 25 L Cancelled (40-60) % Band Neutrophils % 14 H Cancelled (0-10) % Lymphocytes % (Manual) 56 H Cancelled (20-40) % Atypical Lymphs % 0 Cancelled % Immat Monocytes % (Man) Cancelled Monocytes % (Manual) 3 Cancelled (2-10) % Eosinophils % (Manual) 1 Cancelled (0.7-5.8) % Basophils % (Manual) 1 Cancelled (0.1-1.2) Metamyelocytes % Cancelled Myelocytes % Cancelled Promyelocytes % Cancelled Blast Cells % Cancelled Plasma Cell % (Manual) Cancelled Immature Gran # Cancelled Absolute Neutrophils Cancelled Absolute Seg Neuts Cancelled Band Neutrophils # Cancelled Lymphocytes # (Manual) Cancelled Monocytes # (Manual) Cancelled Eosinophils # (Manual) Cancelled Basophils # (Manual) Cancelled Absolute Metamyelocyte Cancelled Absolute Myelocytes Cancelled Absolute Promyelocytes Cancelled Absolute Plasma Cells Cancelled Nucleated RBCs Cancelled Differential Comment Cancelled Manual Slide Review Cancelled Hypersegmented Neuts Cancelled Atypical Lymphocytes Cancelled Vacuolated Monocytes Cancelled Absolute Blast Cells Cancelled Toxic Granulation Cancelled Dohle Bodies Cancelled Pelger-Huet Cells Cancelled Megakaryocytic Frags Cancelled Christine Rods Cancelled WBC Morphology Comment Cancelled Platelet Estimate Decreased Cancelled Clumped Platelets Cancelled Giant Platelets Cancelled Plt Morphology Comment Normal Cancelled Polychromasia Cancelled Hypochromasia 1+ slight Cancelled Poikilocytosis Cancelled Basophilic Stippling Cancelled Anisocytosis 2+ moderate Cancelled Microcytosis Cancelled Macrocytosis Cancelled Spherocytes Cancelled Pappenheimer Bodies Cancelled Sickle Cells Cancelled Target Cells Cancelled Tear Drop Cells Cancelled Ovalocytes Cancelled Stomatocytes Cancelled Helmet Cells Cancelled [place] Bodies Cancelled [place] Rings Cancelled [place] Cells 1+ slight Cancelled Elliptocytes Cancelled Acanthocytes (Spur) Cancelled Rouleaux Cancelled Hemoglobin C Crystals Cancelled Schistocytes Cancelled RBC Morph Comment Not Reportable Cancelled Smear Path Review Cancelled [place] Bodies Cancelled Sodium 136 (136-145) mEq/L Potassium 3.8 (3.5-5.1) mEq/L Chloride 102 (98-107) mEq/L Carbon Dioxide 27 (21-32) mEq/L Anion Gap 10.8 (5-15) BUN 29 H (7-18) mg/dL Creatinine 1.0 (0.55-1.02) mg/dL Est Cr Clr Drug Dosing 38.94 mL/min Estimated GFR (MDRD) 55 (>60) mL/min BUN/Creatinine Ratio 29.0 H (14-18) Glucose 116 H (83-115) mg/dL Lactic Acid (0.4-2.0) mmol/L Calcium 8.4 L (8.5-10.1) mg/dL Total Bilirubin 0.7 (0.2-1.0) mg/dL AST 30 (15-37) U/L ALT 36 (14-59) U/L Alkaline Phosphatase 101 (46-116) U/L Total Protein 6.4 (6.4-8.2) g/dl Albumin 2.7 L (3.4-5.0) g/dl Globulin 3.7 gm/dL Albumin/Globulin Ratio 0.7 L (1-2) Slides for Path Review Cancelled 11/16/19 Range/Units 02:42 WBC (3.98-10.04) K/mm3 Corrected WBC RBC (3.98-5.22) M/mm3 Hgb (11.2-15.7) gm/dl Hct (34.1-44.9) % MCV (79.4-94.8) fl MCH (25.6-32.2) pg MCHC (32.2-35.5) g/dl RDW Std Deviation (36.4-46.3) fL Plt Count (182-369) K/mm3 MPV (9.4-12.3) fl Neut % (Auto) Lymph % (Auto) [place] % (Auto) Eos % (Auto) Baso % (Auto) Neut # (Auto) Lymph # (Auto) Powell # (Auto) Eos # (Auto) Baso # (Auto) Neutrophils % (Manual) (40-60) % Band Neutrophils % (0-10) % Lymphocytes % (Manual) (20-40) % Atypical Lymphs % % Immat Monocytes % (Man) Monocytes % (Manual) (2-10) % Eosinophils % (Manual) (0.7-5.8) % Basophils % (Manual) (0.1-1.2) Metamyelocytes % Myelocytes % Promyelocytes % Blast Cells % Plasma Cell % (Manual) Immature Gran # Absolute Neutrophils Absolute Seg Neuts Band Neutrophils # Lymphocytes # (Manual) Monocytes # (Manual) Eosinophils # (Manual) Basophils # (Manual) Absolute Metamyelocyte Absolute Myelocytes Absolute Promyelocytes Absolute Plasma Cells Nucleated RBCs Differential Comment Manual Slide Review Hypersegmented Neuts Atypical Lymphocytes Vacuolated Monocytes Absolute Blast Cells Toxic Granulation Dohle Bodies Pelger-Huet Cells Megakaryocytic Frags Christine Rods WBC Morphology Comment Platelet Estimate Clumped Platelets Giant Platelets Plt Morphology Comment Polychromasia Hypochromasia Poikilocytosis Basophilic Stippling Anisocytosis Microcytosis Macrocytosis Spherocytes Pappenheimer Bodies Sickle Cells Target Cells Tear Drop Cells Ovalocytes Stomatocytes Helmet Cells [place] Bodies [place] Rings [place] Cells Elliptocytes Acanthocytes (Spur) Rouleaux Hemoglobin C Crystals Schistocytes RBC Morph Comment Smear Path Review [place] Bodies Sodium (136-145) mEq/L Potassium (3.5-5.1) mEq/L Chloride (98-107) mEq/L Carbon Dioxide (21-32) mEq/L Anion Gap (5-15) BUN (7-18) mg/dL Creatinine (0.55-1.02) mg/dL Est Cr Clr Drug Dosing mL/min Estimated GFR (MDRD) (>60) mL/min BUN/Creatinine Ratio (14-18) Glucose (83-115) mg/dL Lactic Acid 0.9 (0.4-2.0) mmol/L Calcium (8.5-10.1) mg/dL Total Bilirubin (0.2-1.0) mg/dL AST (15-37) U/L ALT (14-59) U/L Alkaline Phosphatase (46-116) U/L Total Protein (6.4-8.2) g/dl Albumin (3.4-5.0) g/dl Globulin gm/dL Albumin/Globulin Ratio (1-2) Slides for Path Review Result Diagrams: 11/16/19 02:30 11/16/19 02:30 Sepsis Event Note - Evaluation Sepsis Screening Result: No Definite Risk - Focused Exam Vital Signs: Vital Signs Temp Temp Pulse Pulse Resp BP BP 11/16/19 04:51 97.9 F 85 15 123/66 11/16/19 02:10 97.2 F 74 16 148/88 H Pulse Ox 11/16/19 04:51 97 11/16/19 02:10 100 Date Exam was Performed: 11/16/19 Time Exam was Performed: 12:13 - Problem List (1) Neutropenia SNOMED Code(s): 106974345 ICD Code: D70.9 - NEUTROPENIA, UNSPECIFIED Status: Acute Priority: High Current Visit: Yes Qualifiers: Neutropenia type: other drug-induced Qualified Code(s): D70.2 - Other drug- induced agranulocytosis (2) Adenocarcinoma of breast SNOMED Code(s): 834959976, 367571120 ICD Code: C50.919 - MALIGNANT NEOPLASM OF UNSP SITE OF UNSPECIFIED FEMALE BREAST Status: Chronic Priority: Medium Current Visit: No Qualifiers: Laterality: unspecified laterality Qualified Code(s): C50.919 - Malignant neoplasm of unspecified site of unspecified female breast (3) Anemia SNOMED Code(s): 451382684 ICD Code: D64.9 - ANEMIA, UNSPECIFIED Status: Chronic Priority: Medium Current Visit: No Qualifiers: Anemia type: unspecified type Qualified Code(s): D64.9 - Anemia, unspecified (4) Arthritis SNOMED Code(s): 3345197 ICD Code: M19.90 - UNSPECIFIED OSTEOARTHRITIS, UNSPECIFIED SITE Status: Chronic Priority: Low Current Visit: No (5) CAD (coronary artery disease) SNOMED Code(s): 93269713 ICD Code: I25.10 - ATHSCL HEART DISEASE OF [place] CORONARY ARTERY W/O ANG PCTRS Status: Chronic Priority: Low Current Visit: No Qualifiers: Coronary Disease-Associated Artery/Lesion type: [place] artery [place] vs. transplanted heart: [place] heart Associated angina: without angina Qualified Code(s): I25.10 - Atherosclerotic heart disease of [place] coronary artery without angina pectoris (6) Eczema SNOMED Code(s): 63108307 ICD Code: L30.9 - DERMATITIS, UNSPECIFIED Status: Chronic Priority: Low Current Visit: No Qualifiers: Eczema type: unspecified Qualified Code(s): L30.9 - Dermatitis, unspecified (7) GERD (gastroesophageal reflux disease) SNOMED Code(s): 901267501 ICD Code: K21.9 - GASTRO-ESOPHAGEAL REFLUX DISEASE WITHOUT ESOPHAGITIS Status: Chronic Priority: Low Current Visit: No Qualifiers: Esophagitis presence: esophagitis presence not specified Qualified Code(s) : K21.9 - Gastro-esophageal reflux disease without esophagitis (8) HLD (hyperlipidemia) SNOMED Code(s): 70262945 ICD Code: E78.5 - HYPERLIPIDEMIA, UNSPECIFIED Status: Chronic Priority: Low Current Visit: No Qualifiers: Hyperlipidemia type: unspecified Qualified Code(s): E78.5 - Hyperlipidemia , unspecified (9) Hypothyroidism SNOMED Code(s): 52024600 ICD Code: E03.9 - HYPOTHYROIDISM, UNSPECIFIED Status: Chronic Priority: Low Current Visit: No Qualifiers: Hypothyroidism type: unspecified Qualified Code(s): E03.9 - Hypothyroidism , unspecified (10) Metastatic adenocarcinoma to lung SNOMED Code(s): 0484591220887 ICD Code: C78.00 - SECONDARY MALIGNANT NEOPLASM OF UNSPECIFIED LUNG Status : Chronic Priority: Medium Current Visit: No Qualifiers: Laterality: left Qualified Code(s): C78.02 - Secondary malignant neoplasm of left lung (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 SNOMED Code(s): 8574243494686 ICD Code: C77.9 - SECONDARY AND UNSP MALIGNANT NEOPLASM OF LYMPH NODE, UNSP Status: Chronic Priority: Medium Current Visit: No (12) Morbid obesity with BMI of 40.0-44.9, adult SNOMED Code(s): 782851717, 71450606242722 ICD Code: E66.01 - MORBID (SEVERE) OBESITY DUE TO EXCESS CALORIES; Z68.41 - BODY MASS INDEX (BMI) 40.0-44.9, ADULT Status: Chronic Priority: Low Current Visit: No (13) History of pulmonary embolus (PE) SNOMED Code(s): 507867134 ICD Code: Z86.711 - PERSONAL HISTORY OF PULMONARY EMBOLISM Status: Chronic Priority: Low Current Visit: No (14) History of bilateral mastectomy SNOMED Code(s): 327424475, 454408771 ICD Code: Z90.13 - ACQUIRED ABSENCE OF BILATERAL BREASTS AND NIPPLES Status : Chronic Priority: Low Current Visit: No (15) Hiatal hernia SNOMED Code(s): 31928841 ICD Code: K44.9 - DIAPHRAGMATIC HERNIA WITHOUT OBSTRUCTION OR GANGRENE Status: Chronic Priority: Low Current Visit: No (16) Diarrhea SNOMED Code(s): 77984938 ICD Code: R19.7 - DIARRHEA, UNSPECIFIED Status: Acute Priority: High Current Visit: Yes Qualifiers: Diarrhea type: unspecified type Qualified Code(s): R19.7 - Diarrhea, unspecified (17) Generalized weakness SNOMED Code(s): 30264913 ICD Code: R53.1 - WEAKNESS Status: Acute Priority: High Current Visit: Yes (18) Palliative chemotherapy underway SNOMED Code(s): 842506647, 283208028, 145406301 ICD Code: Z79.899 - OTHER CORRECTION (CURRENT) DRUG THERAPY Status: Chronic Priority: Medium Current Visit: No (19) Hypertension SNOMED Code(s): 09539861 ICD Code: I10 - ESSENTIAL (PRIMARY) HYPERTENSION Status: Chronic Priority : Medium Current Visit: No Qualifiers: Hypertension type: essential hypertension Qualified Code(s): I10 - Essential (primary) hypertension (20) Poor dentition SNOMED Code(s): 141488614 ICD Code: K08.9 - DISORDER OF TEETH AND SUPPORTING STRUCTURES, UNSPECIFIED Status: Acute Current Visit: Yes (21) Hypoalbuminemia SNOMED Code(s): 191690582 ICD Code: E88.09 - OTH DISORDERS OF PLASMA-PROTEIN METABOLISM, NEC Status: Acute Priority: Medium Current Visit: Yes Problem List Initiated/Reviewed/Updated: Yes Orders Last 24hrs: Active Orders 24 hr Category Date Time Status Admission Status [Patient Status] [ADT] Routine ADT 11/16/19 04:19 Active Height and Weight [RC] DAILY Care 11/16/19 07:48 Active Implanted Port Access [RC] ASDIRECTED Care 11/16/19 02:41 Active Intake and Output [RC] QSHIFT Care 11/16/19 07:48 Active Oxygen Therapy [RC] PRN Care 11/16/19 07:48 Active Pulse Oximetry [RC] PRN Care 11/16/19 07:48 Active Up With Assistance [RC] ASDIRECTED Care 11/16/19 06:20 Active VTE/DVT Education [RC] PER UNIT ROUTINE Care 11/16/19 07:48 Active Vital Signs [RC] Q4H Care 11/16/19 07:48 Active Consult to Case Management/Home Delivery Driver [CONS] Cons 11/16/19 07:48 Active Routine Consult to Carpenter [employer] [CONS] Routine Cons 11/16/19 08:07 Ordered Consult to Spiritual Care [CONS] Routine Cons 11/16/19 07:48 Active OT Evaluation and Treatment [CONS] Routine Cons 11/16/19 07:48 Active PT Evaluation and Treatment [CONS] Routine Cons 11/16/19 07:48 Active Regular Diet [DIET] Diet 11/16/19 Breakfast Active CBC WITH AUTO DIFF [HEME] AM Lab 11/17/19 05:11 Ordered COMPREHENSIVE METABOLIC PN,CMP [CHEM] AM Lab 11/17/19 05:11 Ordered CULTURE BLOOD [BC] Stat Lab 11/16/19 02:30 Received CULTURE BLOOD [BC] Stat Lab 11/16/19 02:42 Received MAGNESIUM [CHEM] AM Lab 11/17/19 05:11 Ordered MAGNESIUM [CHEM] Routine Lab 11/16/19 08:06 Ordered PHOSPHORUS [CHEM] AM Lab 11/17/19 05:11 Ordered PHOSPHORUS [CHEM] Routine Lab 11/16/19 08:06 Ordered UA W/MICROSCOPIC [URIN] Routine Lab 11/16/19 07:47 Ordered Acetaminophen [Tylenol] Med 11/16/19 07:48 Active 650 mg PO Q4H PRN Aspirin [Halfprin] Med 11/16/19 09:00 Active 81 mg PO DAILY Bumetanide [Bumex] Med 11/16/19 08:00 Ordered 1 mg PO Q48H Cefepime [Maxipime in D5W 2 GM/50 ML] 2 gm Med 11/16/19 12:00 Active Premix Bag 1 bag IV Q12HR Levothyroxine [Synthroid] Med 11/17/19 06:00 Ordered 50 mcg PO ACBREAKFAST Losartan [Cozaar] Med 11/16/19 09:00 Ordered 25 mg PO DAILY Metoprolol Succinate Med 11/16/19 09:00 Ordered 100 mg PO DAILY Omeprazole Med 11/16/19 18:00 Ordered 20 mg PO QPM Ondansetron [Zofran] Med 11/16/19 07:48 Active 4 mg IV Q6H PRN Oxybutynin [Oxybutynin ER] Med 11/16/19 21:00 Ordered 10 mg PO BEDTIME Rivaroxaban [Xarelto] Med 11/16/19 09:00 Ordered 20 mg PO DAILY Sodium Chloride 0.9% [Normal Saline] 1,000 ml Med 11/16/19 06:30 Active IV ASDIRECTED amLODIPine [Norvasc] Med 11/16/19 09:00 Pending 5 mg PO DAILY Blood Culture x2 Reflex Set [OM.PC] Stat Oth 11/16/19 02:19 Ordered Isolation [COMM] Routine Oth 11/16/19 07:45 Ordered Code Status [Resuscitation Status] Routine Resus Stat 11/16/19 05:54 Ordered Medication Orders Acetaminophen (Tylenol) 650 mg PO Q4H PRN PRN Reason: Pain (Mild 1-3)/fever Amlodipine Besylate (Norvasc) 5 mg PO DAILY [facility] Aspirin (Halfprin) 81 mg PO DAILY [facility] Bumetanide (Bumex) 1 mg PO Q48H [facility] Sodium Chloride (Normal Saline) 1,000 mls @ 100 mls/hr IV ASDIRECTED [facility] Last Admin: 11/16/19 06:33 Dose: 100 mls/hr Cefepime HCl 2 gm/ Premix 50 mls @ 100 mls/hr IV Q12HR [facility] Levothyroxine Sodium (Synthroid) 50 mcg PO ACBREAKFAST [facility] Losartan Potassium (Cozaar) 25 mg PO DAILY [facility] Non-Formulary Medication (Metoprolol Succinate) 100 mg PO DAILY [facility] Non-Formulary Medication (Omeprazole) 20 mg PO QPM [facility] Non-Formulary Medication (Rivaroxaban [Xarelto]) 20 mg PO DAILY [facility] Ondansetron HCl (Zofran) 4 mg IV Q6H PRN PRN Reason: Nausea/Vomiting Oxybutynin Chloride (Oxybutynin Er) 10 mg PO BEDTIME [facility] Assessment/Plan Comment:: Day of admission: Admitted for neutropenia, generalized weakness, chills. Started on Maxipime and vancomycin. 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 Handley - oncologist Reports 6 year hx/o breast cancer with recent mets to lungs CXR in ED shows worsening lung nodules UA shows trace LE, 5-10 squamous epithelial cells, trace protein Port in right chest Denies any recent fever but reports 1-2 days of chills Acute on chronic diarrhea for past few days Skin inspection shows irritation to left groin with no signs of active infection , wound on left abdominal fold - pt. reports occasional drainage Poor dentition with fractured 10th tooth PLAN - Contact Dr. Handley and obtain old records - PT/OT - CM/SW for discharge planning and assistance if needed - Infectious workup for diarrhea including c. diff and stool culture - CT scan of maxilla/mandible to r/o abscess - Monitor for fevers - Blood cultures obtained and pending - Started on Maxipime - add vancomycin for now with skin wound - Culture skin wound on left abdomen - SEFERINO prep to right great toenail - 100ml NS started in ED -> switch to LR - Monitor electrolytes, fluid status - Obtain TSH/T4 Arthritis On home Voltaren gel PLAN - Continue home med CAD (coronary artery disease) HLD (hyperlipidemia) History of pulmonary embolus (PE) Hypertension On home Norvasc, ASA, Bumex, Cozaar, metoprolol, Xarelto PLAN -Continue home meds GERD (gastroesophageal reflux disease) Hiatal hernia On home omeprazole PLAN -Continue home med Hypothyroidism On home levothyroxine PLAN - Continue home medication - Obtain TSH/T4 Morbid obesity with BMI of 40.0-44.9, adult Hypoalbuminemia PLAN - [employer] consult - Obtain pre-albumin Code status: Full code PCP: Dr. Mock Oncology: Dr. Handley Disposition: Anticipate 2 day stay while working up to ensure no infectious source of symptoms, neutropenia. Admitted to observation status. Social: Lives at home with who assists with her care. - Mortality Measure Prognosis:: Poor
[2019-11-16] MEDS ORDERED: Aspirin 81 MG Tab.EC PO SCH (09:00)
[2019-11-16] MEDS ORDERED: RIVAROXABAN 20 MG PO SCH ×3 (09:00→21:00)
[2019-11-16] MEDS ORDERED: Enoxaparin 100 MG/1 ML Syringe SUBCUT SCH (10:30)
[2019-11-16] MEDS: Acetaminophen 325 MG Tab PO PRN ×2 (11:03→20:38)
[2019-11-16] MEDS ORDERED: Vancomycin 1 GM, Vancomycin 250 MG in Sodium Chloride 0.9% 250 ML IV ONE ×2 (12:00→13:00)
[2019-11-16] MEDS: Cefepime 2 GM in Premix Bag 1 BAG IV SCH ×2 (12:13→20:39)
[2019-11-16] MEDS: Losartan 25 MG Tab PO SCH (12:50)
[2019-11-16] MEDS: Metoprolol Succinate 100 MG PO SCH (12:51)
[2019-11-16] MEDS: amLODIPine 5 MG Tab PO SCH (12:57)
[2019-11-16] MEDS ORDERED: Aspirin 81 MG Tab.Chew ONE (13:43)
--- NOTE | 2019-11-16 13:49 | CT ---
CT maxillofacial Technique: Multiple axial sections through the facial bones were obtained. Intravenous contrast not utilized. Reconstructed coronal and sagittal images were obtained. Findings: Paranasal sinuses are clear. No mucosal thickening or air-fluid levels are appreciated. Right and left globes are symmetric. Mastoid sinuses are clear. No adenopathy or mass is seen within the neck. Artifact is noted from dental hardware. There does appear to be scattered dental caries present. No definite root abscess is seen on this study although artifact makes evaluation difficult. No soft tissue abscess is appreciated. Impression: 1. Dental caries appear to be present. 2. Artifact from dental hardware. No definite root abscess or adjacent soft tissue abscess is seen. 3. Other normal findings as noted above. Diagnostic code #2 This report was dictated in MDT
[2019-11-16] MEDS: Aspirin 81 MG Tab.EC PO SCH (16:13)
[2019-11-16] MEDS: Lactated Ringers 1,000 ML IV SCH (16:19)
[2019-11-16] MEDS ORDERED: Omeprazole 20 MG Cap.CR PO SCH ×2 (18:00→21:00)
[2019-11-16] MEDS ORDERED: Oxybutynin 5 MG Tab.ER PO SCH (21:00)
[2019-11-17] MEDS: Lactated Ringers 1,000 ML IV SCH ×2 (02:25→16:13)
[2019-11-17] MEDS ORDERED: Levothyroxine 50 MCG Tab PO SCH (06:00)
--- NOTE | 2019-11-17 07:21 | PCM.PN ---
- General Info Date of Service: 11/17/19 Admission Dx/Problem (Free Text): Admission Diagnosis/Problem Admission Diagnosis/Problem Weakness Functional Status: Reports: Pain Controlled, Tolerating Diet, Ambulating, Urinating. Denies: New Symptoms - Review of Systems General: Reports: Weakness, Fatigue, Malaise, Chills. Denies: Fever HEENT: Reports: No Symptoms Pulmonary: Reports: No Symptoms. Denies: Shortness of Breath, Cough, Sputum, Wheezing Cardiovascular: Reports: No Symptoms. Denies: Chest Pain, Palpitations, Dyspnea on Exertion, Edema Gastrointestinal: Reports: Diarrhea. Denies: Abdominal Pain, Constipation, Nausea, Vomiting Genitourinary: Reports: No Symptoms. Denies: Pain Musculoskeletal: Reports: No Symptoms Skin: Reports: No Symptoms. Denies: Cyanosis Neurological: Reports: No Symptoms, Difficulty Walking, Weakness, Gait Disturbance. Denies: Confusion Psychiatric: Reports: No Symptoms - Patient Data Vitals - Most Recent: Last Vital Signs Temp 97.7 F 11/17/19 02:13 Pulse 69 11/17/19 02:13 Resp 18 11/17/19 02:13 BP 133/63 11/17/19 02:13 Pulse Ox 100 11/17/19 05:36 Weight - Most Recent: 215 lb 4.8 oz I&O - Last 24 Hours: Intake & Output 11/16/19 11/17/19 11/17/19 22:59 06:59 14:59 Intake Total 1479 1249 Output Total 1550 2150 Balance -71 -901 Lab Results Last 24 Hours: Laboratory Results - last 24 hr 11/16/19 11/16/19 11/16/19 Range/Units 02:30 02:30 02:30 WBC (3.98-10.04) K/mm3 RBC (3.98-5.22) M/mm3 Hgb (11.2-15.7) gm/dl Hct (34.1-44.9) % MCV (79.4-94.8) fl MCH (25.6-32.2) pg MCHC (32.2-35.5) g/dl RDW Std Deviation (36.4-46.3) fL Plt Count (182-369) K/mm3 MPV (9.4-12.3) fl Neutrophils % (Manual) (40-60) % Band Neutrophils % (0-10) % Lymphocytes % (Manual) (20-40) % Atypical Lymphs % % Monocytes % (Manual) (2-10) % Eosinophils % (Manual) (0.7-5.8) % Basophils % (Manual) (0.1-1.2) Platelet Estimate Poikilocytosis Anisocytosis RBC Morph Comment Sodium (136-145) mEq/L Potassium (3.5-5.1) mEq/L Chloride (98-107) mEq/L Carbon Dioxide (21-32) mEq/L Anion Gap (5-15) BUN (7-18) mg/dL Creatinine (0.55-1.02) mg/dL Est Cr Clr Drug Dosing mL/min Estimated GFR (MDRD) (>60) mL/min BUN/Creatinine Ratio (14-18) Glucose (83-115) mg/dL Lactic Acid (0.4-2.0) mmol/L Calcium (8.5-10.1) mg/dL Phosphorus 2.8 (2.6-4.7) mg/dL Magnesium 2.2 (1.8-2.4) mg/dl Total Bilirubin (0.2-1.0) mg/dL AST (15-37) U/L ALT (14-59) U/L Alkaline Phosphatase (46-116) U/L Total Protein (6.4-8.2) g/dl Albumin (3.4-5.0) g/dl Globulin gm/dL Albumin/Globulin Ratio (1-2) Prealbumin 18.8 (17.0-34.0) mg/dL Procalcitonin 0.31 H (<0.10) ng/mL Free T4 (0.76-1.46) ng/dL TSH 3rd Generation (0.358-3.74) uIU/mL Urine Color (Yellow) Urine Appearance (Clear) Urine pH (5.0-8.0) Ur Specific [place] (1.005-1.030) Urine Protein (Negative) Urine Glucose (UA) (Negative) Urine Ketones (Negative) Urine Occult Blood (Negative) Urine Nitrite (Negative) Urine Bilirubin (Negative) Urine Urobilinogen (0.2-1.0) Ur Leukocyte Esterase (Negative) Urine RBC (0-5) /hpf Urine WBC (0-5) /hpf Ur Squamous Epith Cells (0-5) /hpf Urine Bacteria (FEW) /hpf Urine Mucus (FEW) /hpf 11/16/19 11/16/19 11/16/19 Range/Units 07:55 11:27 11:27 WBC (3.98-10.04) K/mm3 RBC (3.98-5.22) M/mm3 Hgb (11.2-15.7) gm/dl Hct (34.1-44.9) % MCV (79.4-94.8) fl MCH (25.6-32.2) pg MCHC (32.2-35.5) g/dl RDW Std Deviation (36.4-46.3) fL Plt Count (182-369) K/mm3 MPV (9.4-12.3) fl Neutrophils % (Manual) (40-60) % Band Neutrophils % (0-10) % Lymphocytes % (Manual) (20-40) % Atypical Lymphs % % Monocytes % (Manual) (2-10) % Eosinophils % (Manual) (0.7-5.8) % Basophils % (Manual) (0.1-1.2) Platelet Estimate Poikilocytosis Anisocytosis RBC Morph Comment Sodium (136-145) mEq/L Potassium (3.5-5.1) mEq/L Chloride (98-107) mEq/L Carbon Dioxide (21-32) mEq/L Anion Gap (5-15) BUN (7-18) mg/dL Creatinine (0.55-1.02) mg/dL Est Cr Clr Drug Dosing mL/min Estimated GFR (MDRD) (>60) mL/min BUN/Creatinine Ratio (14-18) Glucose (83-115) mg/dL Lactic Acid 0.9 (0.4-2.0) mmol/L Calcium (8.5-10.1) mg/dL Phosphorus (2.6-4.7) mg/dL Magnesium (1.8-2.4) mg/dl Total Bilirubin (0.2-1.0) mg/dL AST (15-37) U/L ALT (14-59) U/L Alkaline Phosphatase (46-116) U/L Total Protein (6.4-8.2) g/dl Albumin (3.4-5.0) g/dl Globulin gm/dL Albumin/Globulin Ratio (1-2) Prealbumin (17.0-34.0) mg/dL Procalcitonin (<0.10) ng/mL Free T4 1.12 (0.76-1.46) ng/dL TSH 3rd Generation 3.085 (0.358-3.74) uIU/mL Urine Color Yellow (Yellow) Urine Appearance Clear (Clear) Urine pH 7.0 (5.0-8.0) Ur Specific [place] 1.025 (1.005-1.030) Urine Protein Trace H (Negative) Urine Glucose (UA) Negative (Negative) Urine Ketones Negative (Negative) Urine Occult Blood Negative (Negative) Urine Nitrite Negative (Negative) Urine Bilirubin Negative (Negative) Urine Urobilinogen 0.2 (0.2-1.0) Ur Leukocyte Esterase Trace H (Negative) Urine RBC Not seen (0-5) /hpf Urine WBC 0-5 (0-5) /hpf Ur Squamous Epith Cells 5-10 H (0-5) /hpf Urine Bacteria Not seen (FEW) /hpf Urine Mucus Not seen (FEW) /hpf 11/17/19 11/17/19 Range/Units 05:04 05:04 WBC 0.97 L* (3.98-10.04) K/mm3 RBC 3.60 L (3.98-5.22) M/mm3 Hgb 10.1 L (11.2-15.7) gm/dl Hct 31.9 L (34.1-44.9) % MCV 88.6 (79.4-94.8) fl MCH 28.1 (25.6-32.2) pg MCHC 31.7 L (32.2-35.5) g/dl RDW Std Deviation 50.2 H (36.4-46.3) fL Plt Count 98 L (182-369) K/mm3 MPV 10.9 (9.4-12.3) fl Neutrophils % (Manual) 47 (40-60) % Band Neutrophils % 0 (0-10) % Lymphocytes % (Manual) 43 H (20-40) % Atypical Lymphs % 0 % Monocytes % (Manual) 5 (2-10) % Eosinophils % (Manual) 5 (0.7-5.8) % Basophils % (Manual) 0 L (0.1-1.2) Platelet Estimate Decreased Poikilocytosis 1+ slight Anisocytosis 1+ slight RBC Morph Comment Not Reportable Sodium 138 (136-145) mEq/L Potassium 3.6 (3.5-5.1) mEq/L Chloride 103 (98-107) mEq/L Carbon Dioxide 26 (21-32) mEq/L Anion Gap 12.6 (5-15) BUN 22 H (7-18) mg/dL Creatinine 1.0 (0.55-1.02) mg/dL Est Cr Clr Drug Dosing 38.94 mL/min Estimated GFR (MDRD) 55 (>60) mL/min BUN/Creatinine Ratio 22.0 H (14-18) Glucose 103 (83-115) mg/dL Lactic Acid (0.4-2.0) mmol/L Calcium 8.2 L (8.5-10.1) mg/dL Phosphorus 3.2 (2.6-4.7) mg/dL Magnesium 1.6 L (1.8-2.4) mg/dl Total Bilirubin 0.5 (0.2-1.0) mg/dL AST 25 (15-37) U/L ALT 34 (14-59) U/L Alkaline Phosphatase 95 (46-116) U/L Total Protein 6.2 L (6.4-8.2) g/dl Albumin 2.6 L (3.4-5.0) g/dl Globulin 3.6 gm/dL Albumin/Globulin Ratio 0.7 L (1-2) Prealbumin (17.0-34.0) mg/dL Procalcitonin (<0.10) ng/mL Free T4 (0.76-1.46) ng/dL TSH 3rd Generation (0.358-3.74) uIU/mL Urine Color (Yellow) Urine Appearance (Clear) Urine pH (5.0-8.0) Ur Specific [place] (1.005-1.030) Urine Protein (Negative) Urine Glucose (UA) (Negative) Urine Ketones (Negative) Urine Occult Blood (Negative) Urine Nitrite (Negative) Urine Bilirubin (Negative) Urine Urobilinogen (0.2-1.0) Ur Leukocyte Esterase (Negative) Urine RBC (0-5) /hpf Urine WBC (0-5) /hpf Ur Squamous Epith Cells (0-5) /hpf Urine Bacteria (FEW) /hpf Urine Mucus (FEW) /hpf Dax Results Last 24 Hours: Microbiology 11/16/19 02:42 Aerobic Blood Culture - Preliminary Blood - Venous - Lab Draw NO GROWTH AFTER 1 DAY Anaerobic Blood Culture - Preliminary NO GROWTH AFTER 1 DAY 11/16/19 02:30 Aerobic Blood Culture - Preliminary Blood - Venous NO GROWTH AFTER 1 DAY Anaerobic Blood Culture - Preliminary NO GROWTH AFTER 1 DAY 11/16/19 12:15 SEFERINO Preparation - Final Toenail, Right - Right Big Med Orders - Current: Current Medications Acetaminophen (Tylenol) 650 mg PO Q4H PRN PRN Reason: Pain (Mild 1-3)/fever Last Admin: 11/16/19 20:38 Dose: 650 mg Amlodipine Besylate (Norvasc) 5 mg PO DAILY [facility] Last Admin: 11/16/19 12:57 Dose: 5 mg Aspirin (Halfprin) 81 mg PO DAILY [facility] Last Admin: 11/16/19 16:13 Dose: 81 mg Bumetanide (Bumex) 1 mg PO Q48H [facility] Last Admin: 11/16/19 13:48 Dose: 1 mg Diclofenac Sodium (Voltaren 1% Gel) 2 gm TOP QID [facility] Last Admin: 11/16/19 20:37 Dose: 2 gm Cefepime HCl 2 gm/ Premix 50 mls @ 100 mls/hr IV Q12HR [facility] Last Admin: 11/16/19 20:39 Dose: Not Given Vancomycin HCl 1 gm/ Sodium (Chloride) 250 mls @ 250 mls/hr IV Q12H [facility] Last Admin: 11/17/19 00:24 Dose: Not Given Lactated Ringer's (Ringers, Lactated) 1,000 mls @ 100 mls/hr IV ASDIRECTED [facility] Last Admin: 11/17/19 02:25 Dose: 100 mls/hr Levothyroxine Sodium (Synthroid) 50 mcg PO ACBREAKFAST [facility] Last Admin: 11/17/19 06:18 Dose: 50 mcg Losartan Potassium (Cozaar) 25 mg PO DAILY [facility] Last Admin: 11/16/19 12:50 Dose: 25 mg Metoprolol Succinate (100 Mg) 0 mg PO DAILY [facility] Last Admin: 11/16/19 12:51 Dose: 100 mg Rivaroxaban [Xarelto (] 20 Mg) 0 mg PO BEDTIME [facility] Last Admin: 11/16/19 20:37 Dose: 20 mg Omeprazole (Omeprazole) 20 mg PO BEDTIME [facility] Last Admin: 11/16/19 20:36 Dose: 20 mg Ondansetron HCl (Zofran) 4 mg IV Q6H PRN PRN Reason: Nausea/Vomiting Oxybutynin Chloride (Oxybutynin Er) 10 mg PO BEDTIME [facility] Last Admin: 11/16/19 20:36 Dose: 10 mg Tbo-Filgrastim (Granix) 480 mcg SUBCUT DAILY [facility] Last Admin: 11/16/19 16:13 Dose: 480 mcg Vancomycin HCl (Pharmacy To Dose - Vancomycin) 1 dose .XX ASDIRECTED PRN PRN Reason: RX TO DOSE VANCO Discontinued Medications Aspirin (Halfprin) 81 mg PO DAILY [facility] Last Admin: 11/16/19 14:42 Dose: Not Given Aspirin (Aspirin) Confirm Administered Dose 81 mg .ROUTE .STK-MED ONE Stop: 11/16/19 13:44 Last Admin: 11/16/19 14:06 Dose: Not Given Bumetanide (Bumex) 1 mg PO Q48H [facility] Last Admin: 11/16/19 14:42 Dose: Not Given Diclofenac Sodium (Voltaren 1% Gel) 2 gm TOP QID [facility] Lactated Ringer's (Ringers, Lactated) 1,000 mls @ 999 mls/hr IV .BOLUS ONE Stop: 11/16/19 03:20 Last Admin: 11/16/19 02:49 Dose: 999 mls/hr Sodium Chloride (Normal Saline) 1,000 mls @ 100 mls/hr IV ASDIRECTED [facility] Last Admin: 11/16/19 06:33 Dose: 100 mls/hr Vancomycin HCl 1 gm/Vancomycin HCl 250 mg/ Sodium Chloride 250 mls @ 166.667 mls/hr IV ONETIME ONE Stop: 11/16/19 13:29 Last Admin: 11/16/19 12:44 Dose: Not Given Vancomycin HCl 1 gm/Vancomycin HCl 250 mg/ Sodium Chloride 250 mls @ 166.667 mls/hr IV ONETIME ONE Stop: 11/16/19 14:29 Last Admin: 11/16/19 12:53 Dose: 166.667 mls/hr Rivaroxaban [Xarelto (] 20 Mg) 0 mg PO DAILY [facility] Last Admin: 11/16/19 14:42 Dose: Not Given Rivaroxaban [Xarelto (] 20 Mg) 0 mg PO DAILY [facility] Last Admin: 11/16/19 14:43 Dose: Not Given Omeprazole (Omeprazole) 20 mg PO QPM [facility] Last Admin: 11/16/19 18:37 Dose: Not Given Diclofenac Gel 1% 0 each TOP QID [facility] Last Admin: 11/16/19 14:44 Dose: Not Given - Exam Quality Assessment: DVT Prophylaxis General: Alert, Oriented, Cooperative, No Acute Distress HEENT: Pupils Equal, Pupils Reactive, Mucous Membr. Moist/[place] Neck: Supple, Trachea Midline Lungs: Clear to Auscultation, Normal Respiratory Effort Cardiovascular: Regular Rate, Regular Rhythm GI/Abdominal Exam: Normal Bowel Sounds, Soft, Non-Tender, No Distention (Female) Exam: Deferred Back Exam: Normal Inspection, Full Range of Motion Extremities: Normal Inspection, Normal Range of Motion, Non-Tender, No Pedal Edema, Normal Capillary Refill Skin: Warm, Dry, Intact Wound/Incisions: No Drainage, Erythema Improving Neurological: No New Focal Deficit Psy/Mental Status: Alert Sepsis Event Note - Evaluation Sepsis Screening Result: No Definite Risk - Focused Exam Vital Signs: Vital Signs Temp Pulse Resp BP Pulse Ox 11/17/19 05:36 100 11/17/19 02:13 97.7 F 69 18 133/63 100 11/16/19 20:41 97.5 F 76 18 110/55 L 100 Date Exam was Performed: 11/17/19 Time Exam was Performed: 11:27 - Problem List & Annotations (1) Neutropenia SNOMED Code(s): 389762344 Code(s): D70.9 - NEUTROPENIA, UNSPECIFIED Status: Acute Priority: High Current Visit: Yes Qualifiers: Neutropenia type: other drug-induced Qualified Code(s): D70.2 - Other drug- induced agranulocytosis (2) Adenocarcinoma of breast SNOMED Code(s): 996971584, 202247901 Code(s): C50.919 - MALIGNANT NEOPLASM OF UNSP SITE OF UNSPECIFIED FEMALE BREAST Status: Chronic Priority: Medium Current Visit: No Qualifiers: Laterality: unspecified laterality Qualified Code(s): C50.919 - Malignant neoplasm of unspecified site of unspecified female breast (3) Anemia SNOMED Code(s): 268080304 Code(s): D64.9 - ANEMIA, UNSPECIFIED Status: Chronic Priority: Medium Current Visit: No Qualifiers: Anemia type: unspecified type Qualified Code(s): D64.9 - Anemia, unspecified (4) Arthritis SNOMED Code(s): 2208895 Code(s): M19.90 - UNSPECIFIED OSTEOARTHRITIS, UNSPECIFIED SITE Status: Chronic Priority: Low Current Visit: No (5) CAD (coronary artery disease) SNOMED Code(s): 00751200 Code(s): I25.10 - ATHSCL HEART DISEASE OF [place] CORONARY ARTERY W/O ANG PCTRS Status: Chronic Priority: Low Current Visit: No Qualifiers: Coronary Disease-Associated Artery/Lesion type: [place] artery [place] vs. transplanted heart: [place] heart Associated angina: without angina Qualified Code(s): I25.10 - Atherosclerotic heart disease of [place] coronary artery without angina pectoris (6) Eczema SNOMED Code(s): 96386286 Code(s): L30.9 - DERMATITIS, UNSPECIFIED Status: Chronic Priority: Low Current Visit: No Qualifiers: Eczema type: unspecified Qualified Code(s): L30.9 - Dermatitis, unspecified (7) GERD (gastroesophageal reflux disease) SNOMED Code(s): 194189363 Code(s): K21.9 - GASTRO-ESOPHAGEAL REFLUX DISEASE WITHOUT ESOPHAGITIS Status: Chronic Priority: Low Current Visit: No Qualifiers: Esophagitis presence: esophagitis presence not specified Qualified Code(s) : K21.9 - Gastro-esophageal reflux disease without esophagitis (8) HLD (hyperlipidemia) SNOMED Code(s): 19357973 Code(s): E78.5 - HYPERLIPIDEMIA, UNSPECIFIED Status: Chronic Priority: Low Current Visit: No Qualifiers: Hyperlipidemia type: unspecified Qualified Code(s): E78.5 - Hyperlipidemia , unspecified (9) Hypothyroidism SNOMED Code(s): 32428325 Code(s): E03.9 - HYPOTHYROIDISM, UNSPECIFIED Status: Chronic Priority: Low Current Visit: No Qualifiers: Hypothyroidism type: unspecified Qualified Code(s): E03.9 - Hypothyroidism , unspecified (10) Metastatic adenocarcinoma to lung SNOMED Code(s): 8683938906520 Code(s): C78.00 - SECONDARY MALIGNANT NEOPLASM OF UNSPECIFIED LUNG Status: Chronic Priority: Medium Current Visit: No Qualifiers: Laterality: left Qualified Code(s): C78.02 - Secondary malignant neoplasm of left lung (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 SNOMED Code(s): 9920923253984 Code(s): C77.9 - SECONDARY AND UNSP MALIGNANT NEOPLASM OF LYMPH NODE, UNSP Status: Chronic Priority: Medium Current Visit: No (12) Morbid obesity with BMI of 40.0-44.9, adult SNOMED Code(s): 557088938, 64937750061241 Code(s): E66.01 - MORBID (SEVERE) OBESITY DUE TO EXCESS CALORIES; Z68.41 - BODY MASS INDEX (BMI) 40.0-44.9, ADULT Status: Chronic Priority: Low Current Visit: No (13) History of pulmonary embolus (PE) SNOMED Code(s): 486449217 Code(s): Z86.711 - PERSONAL HISTORY OF PULMONARY EMBOLISM Status: Chronic Priority: Low Current Visit: No (14) History of bilateral mastectomy SNOMED Code(s): 265095760, 787465697 Code(s): Z90.13 - ACQUIRED ABSENCE OF BILATERAL BREASTS AND NIPPLES Status : Chronic Priority: Low Current Visit: No (15) Hiatal hernia SNOMED Code(s): 62124583 Code(s): K44.9 - DIAPHRAGMATIC HERNIA WITHOUT OBSTRUCTION OR GANGRENE Status: Chronic Priority: Low Current Visit: No (16) Diarrhea SNOMED Code(s): 89362033 Code(s): R19.7 - DIARRHEA, UNSPECIFIED Status: Acute Priority: High Current Visit: Yes Qualifiers: Diarrhea type: unspecified type Qualified Code(s): R19.7 - Diarrhea, unspecified (17) Generalized weakness SNOMED Code(s): 37115268 Code(s): R53.1 - WEAKNESS Status: Acute Priority: High Current Visit: Yes (18) Palliative chemotherapy underway SNOMED Code(s): 814060510, 888925697, 545685629 Code(s): Z79.899 - OTHER FILLING MACHINE TENDER (CURRENT) DRUG THERAPY Status: Chronic Priority: Medium Current Visit: No (19) Hypertension SNOMED Code(s): 12298161 Code(s): I10 - ESSENTIAL (PRIMARY) HYPERTENSION Status: Chronic Priority : Medium Current Visit: No Qualifiers: Hypertension type: essential hypertension Qualified Code(s): I10 - Essential (primary) hypertension (20) Poor dentition SNOMED Code(s): 898780808 Code(s): K08.9 - DISORDER OF TEETH AND SUPPORTING STRUCTURES, UNSPECIFIED Status: Acute Current Visit: Yes (21) Hypoalbuminemia SNOMED Code(s): 654867047 Code(s): E88.09 - OTH DISORDERS OF PLASMA-PROTEIN METABOLISM, NEC Status: Acute Priority: Medium Current Visit: Yes (22) Hypomagnesemia SNOMED Code(s): 396192451 Code(s): E83.42 - HYPOMAGNESEMIA Status: Acute Current Visit: Yes - Problem List Review Problem List Initiated/Reviewed/Updated: Yes - My Orders Last 24 Hours: My Active Orders 11/16/19 07:45 Isolation [COMM] Routine 11/16/19 07:48 Height and Weight [RC] 04 Intake and Output [RC] 04,16 Oxygen Therapy [RC] PRN Pulse Oximetry [RC] PRN VTE/DVT Education [RC] DAILY Vital Signs [RC] 03,09,15,21 Consult to Case Management/Subpoena Server [CONS] Routine Consult to Spiritual Care [CONS] Routine OT Evaluation and Treatment [CONS] Routine PT Evaluation and Treatment [CONS] Routine Acetaminophen [Tylenol] 650 mg PO Q4H PRN Ondansetron [Zofran] 4 mg IV Q6H PRN 11/16/19 08:07 Consult to Development Eng [CONS] Routine 11/16/19 09:00 Losartan [Cozaar] 25 mg PO DAILY Metoprolol Succinate 0 mg PO DAILY amLODIPine [Norvasc] 5 mg PO DAILY 11/16/19 10:16 STOOL CULTURE/SHIGA TOXIN [MREF] Routine 11/16/19 10:18 CULTURE URINE [RM] Routine 11/16/19 12:00 Bumetanide [Bumex] 1 mg PO Q48H 11/16/19 12:15 CULTURE WOUND [RM] Routine 11/16/19 14:45 Aspirin [Halfprin] 81 mg PO DAILY 11/16/19 15:00 Tbo-Filgrastim [Granix] 480 mcg SUBCUT DAILY 11/16/19 17:00 Diclofenac Sodium [Voltaren 1% Gel] 2 gm TOP QID 11/16/19 21:00 Omeprazole 20 mg PO BEDTIME Oxybutynin [Oxybutynin ER] 10 mg PO BEDTIME Rivaroxaban [Xarelto] 0 mg PO BEDTIME 11/16/19 Lunch Neutropenic [DIET] 11/17/19 06:00 Levothyroxine [Synthroid] 50 mcg PO ACBREAKFAST 11/18/19 05:11 CBC WITH MANUAL DIFF [HEME] AM 11/19/19 05:11 CBC WITH MANUAL DIFF [HEME] AM - Plan Plan:: Day of admission: Admitted for neutropenia, generalized weakness, chills. Started on Maxipime and vancomycin. IV fluids NS-> Change to LR at 100ml/hr Infectious workup for diarrhea, skin wound, r/o tooth abscess BM today - several watery diarrhea No fevers Has been up ambulating and working with therapies Day 1: WBC down to 0.97 but neutrophil count up to 47% No infectious symptoms so far Blood cultures negative thus far. 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 Handley - oncologist Reports 6 year hx/o breast cancer with recent mets to lungs CXR in ED shows worsening lung nodules UA shows trace LE, 5-10 squamous epithelial cells, trace protein Port in right chest Denies any recent fever but reports 1-2 days of chills Acute on chronic diarrhea for past few days Skin inspection shows irritation to left groin with no signs of active infection , wound on left abdominal fold - pt. reports occasional drainage Poor dentition with fractured 10th tooth WBC: 1.02-->0.97 Neutrophil %: 25-->47 Procalcitonin on admission 0.31 TSH/T4 WNL PLAN - Contact Dr. Handley and obtain old records - PT/OT - CM/SW for discharge planning and assistance if needed - Infectious workup for diarrhea including c. diff and stool culture - CT scan of maxilla/mandible to r/o abscess - Monitor for fevers - Blood cultures obtained and pending - Started on Maxipime - add vancomycin for now with skin wound - Culture skin wound on left abdomen - SEFERINO prep to right great toenail - 100ml NS started in ED -> switch to LR - Monitor electrolytes, fluid status Arthritis On home Voltaren gel PLAN - Continue home med CAD (coronary artery disease) HLD (hyperlipidemia) History of pulmonary embolus (PE) Hypertension On home Norvasc, ASA, Bumex, Cozaar, metoprolol, Xarelto PLAN -Continue home meds GERD (gastroesophageal reflux disease) Hiatal hernia On home omeprazole PLAN -Continue home med Hypothyroidism On home levothyroxine TSH/T4 WNL PLAN - Continue home medication Morbid obesity with BMI of 40.0-44.9, adult Hypoalbuminemia Pre-albumin 18.8 PLAN - Development Eng consult Code status: Full code DVT Prophylaxis: Home Xarelto PCP: Dr. Mock Oncology: Dr. Handley Disposition: Anticipate 2 day stay while working up to ensure no infectious source of symptoms, neutropenia. Admitted to observation status. Social: Lives at home with who assists with her care. NOTE: Discussed case with patient's oncologist, Dr. Handley on 11/16/19. He states that the patient has been fairly stable and her recurrence has just been in the lymph nodes however within the past 6 months he has noted she now has nodules in her lungs. He reports that this was a new chemotherapy drug that they tried with her and it really had a negative effect on her. He reports that they will not be trying this anymore. He suggests 480 mcg of Neupogen subcutaneous daily. He recommends CBC with differential daily. He recommends transfusion if hemoglobin gets into the 7 range and platelets without a fever at 10,000 or with a fever at 20,000. He recommends patient remain hospitalized until her labs look better. He recommends we continue with plan for infectious work-up. He states that patient should start to feel better and labs should respond within the next few days. He states patient may have some muscle aches with Neupogen. He would like us to check in with him on Thursday to update how the patient is doing.
[2019-11-17] MEDS ORDERED: Magnesium Sulfate/Water 2 GM in Premix Bag 1 BAG IV ONE (07:22)
[2019-11-17] MEDS: Losartan 25 MG Tab PO SCH (08:01)
[2019-11-17] MEDS: Metoprolol Succinate 100 MG PO SCH (08:03)
[2019-11-17] MEDS: Aspirin 81 MG Tab.EC PO SCH (08:03)
[2019-11-17] MEDS: amLODIPine 5 MG Tab PO SCH (08:05)
[2019-11-17] MEDS: Cefepime 2 GM in Premix Bag 1 BAG IV SCH (09:58)
--- NOTE | 2019-11-17 13:40 | CT ---
Head CT Technique: Multiple axial sections through the brain were obtained. Intravenous contrast was not utilized. Comparison: No prior intracranial imaging. Findings: 2 low density cystic areas are seen within the left and right cerebellar hemispheres. Left cerebellar hemisphere finding measures 1.8 cm and right cerebellar hemisphere measures 1.3 cm. Mild diminished density is noted within the periventricular white matter compatible with small vessel ischemic demyelination change. No evidence of intracranial hemorrhage. No midline shift or mass-effect is seen. Bone window settings were reviewed. Visualized mastoid sinuses and visualized paranasal sinuses show nothing acute. Impression: 1. Small cystic area, one located within each cerebellar hemisphere. Findings could represent cystic neoplasm with cysticercosis also within the differential. Old cystic infarcts are also possible. MRI (without and with contrast) is strongly recommended to further evaluate. 2. Mild senescent change as noted above. 3. No other acute finding is seen. Diagnostic code #9 This report was dictated in MDT
--- NOTE | 2019-11-17 14:19 | PCM.DCSUM1 ---
Discharge Summary - Hospital Course HPI Initial Comments: Antonella Cortez is a 69 yo female who presents to ED on the dye expert hours of with weakness, fatigue, and generalized feeling of unwell. Patient does have metastatic breast cancer with recently discovered nodules in her lungs. She states that she had chemotherapy this past Thursday and since then has felt very poor. She reports that this is a new dosing of medication as they are now trying to treat her pulmonary nodules. She reports that she is on palliative chemotherapy and will continue with this until she dies. She reports that she has had decreased appetite, weakness, fatigue, but no fevers, nausea, vomiting. She does report that she has had worsening chills and is also had diarrhea for the past 1 to 2 days. In the ED afebrile with a temp of 36.2 Celsius. Pulse 74. Respirations 16. Blood pressure 148/88 pulse ox 100%. CBC is obtained and shows that the patient has a white count of 1.02, hemoglobin of 10.6, platelet count of 141, neutrophils of 37.2%. Sodium is on the low end of normal at 136. Potassium is 3.8. Chloride 102. Carbon oxide 27. Anion gap 10.8. BUN is high at 29. Creatinine 1.0. GFR is 55. Glucose is 116. Lactic acid 0.9. Calcium is 8.4. Bilirubin 0.7. AST is 30, ALT 36, alkaline phosphatase 101. Protein is 6.4. Albumin is quite low at 2.7. She is given a 1 L bolus of LR and started on cefepime 2 g every 12 hours. Chest x-ray was obtained and interpreted by Dr. Hayes as "1. Increasing size of nodules within both sides of the chest from prior exam presumably due to worsening metastatic disease. 2. No acute parenchymal process is otherwise seen. Started on NS at 100 mils an hour. She carries a history of VTE, CAD, HLD, hypertension, shortness of breath on exertion, PE, recurrent pneumonia, GERD, hiatal hernia, diarrhea secondary to therapy, recurrent UTI, arthritis, hypothyroidism, obesity, anemia, left breast cancer with bilateral mastectomy, eczema, cancer mets to lung. She is a full code. Her PCP is Dr. Rey. Oncologist is Dr. Handley. Diagnosis: Stroke: No - Discharge Data Discharge Date: 11/17/19 (Admit date: 11/16/19) Discharge Disposition: DC/Tfer to SNF 03 Condition: Good - Referral to Home Health Primary Care Physician: Stacey Huggins MD - Discharge Diagnosis/Problem(s) (1) Neutropenia SNOMED Code(s): 280350066 ICD Code: D70.9 - NEUTROPENIA, UNSPECIFIED Status: Acute Priority: High Current Visit: Yes Qualifiers: Neutropenia type: other drug-induced Qualified Code(s): D70.2 - Other drug- induced agranulocytosis (2) Adenocarcinoma of breast SNOMED Code(s): 783220883, 661210426 ICD Code: C50.919 - MALIGNANT NEOPLASM OF UNSP SITE OF UNSPECIFIED FEMALE BREAST Status: Chronic Priority: Medium Current Visit: No Qualifiers: Laterality: unspecified laterality Qualified Code(s): C50.919 - Malignant neoplasm of unspecified site of unspecified female breast (3) Anemia SNOMED Code(s): 161789816 ICD Code: D64.9 - ANEMIA, UNSPECIFIED Status: Chronic Priority: Medium Current Visit: No Qualifiers: Anemia type: unspecified type Qualified Code(s): D64.9 - Anemia, unspecified (4) Arthritis SNOMED Code(s): 2228204 ICD Code: M19.90 - UNSPECIFIED OSTEOARTHRITIS, UNSPECIFIED SITE Status: Chronic Priority: Low Current Visit: No (5) CAD (coronary artery disease) SNOMED Code(s): 51571350 ICD Code: I25.10 - ATHSCL HEART DISEASE OF [place] CORONARY ARTERY W/O ANG PCTRS Status: Chronic Priority: Low Current Visit: No Qualifiers: Coronary Disease-Associated Artery/Lesion type: [place] artery [place] vs. transplanted heart: [place] heart Associated angina: without angina Qualified Code(s): I25.10 - Atherosclerotic heart disease of [place] coronary artery without angina pectoris (6) Eczema SNOMED Code(s): 01967681 ICD Code: L30.9 - DERMATITIS, UNSPECIFIED Status: Chronic Priority: Low Current Visit: No Qualifiers: Eczema type: unspecified Qualified Code(s): L30.9 - Dermatitis, unspecified (7) GERD (gastroesophageal reflux disease) SNOMED Code(s): 097493724 ICD Code: K21.9 - GASTRO-ESOPHAGEAL REFLUX DISEASE WITHOUT ESOPHAGITIS Status: Chronic Priority: Low Current Visit: No Qualifiers: Esophagitis presence: esophagitis presence not specified Qualified Code(s) : K21.9 - Gastro-esophageal reflux disease without esophagitis (8) HLD (hyperlipidemia) SNOMED Code(s): 78510517 ICD Code: E78.5 - HYPERLIPIDEMIA, UNSPECIFIED Status: Chronic Priority: Low Current Visit: No Qualifiers: Hyperlipidemia type: unspecified Qualified Code(s): E78.5 - Hyperlipidemia , unspecified (9) Hypothyroidism SNOMED Code(s): 01992783 ICD Code: E03.9 - HYPOTHYROIDISM, UNSPECIFIED Status: Chronic Priority: Low Current Visit: No Qualifiers: Hypothyroidism type: unspecified Qualified Code(s): E03.9 - Hypothyroidism , unspecified (10) Metastatic adenocarcinoma to lung SNOMED Code(s): 4310034234273 ICD Code: C78.00 - SECONDARY MALIGNANT NEOPLASM OF UNSPECIFIED LUNG Status : Chronic Priority: Medium Current Visit: No Qualifiers: Laterality: left Qualified Code(s): C78.02 - Secondary malignant neoplasm of left lung (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 SNOMED Code(s): 5623791232898 ICD Code: C77.9 - SECONDARY AND UNSP MALIGNANT NEOPLASM OF LYMPH NODE, UNSP Status: Chronic Priority: Medium Current Visit: No (12) Morbid obesity with BMI of 40.0-44.9, adult SNOMED Code(s): 713438917, 76941959576331 ICD Code: E66.01 - MORBID (SEVERE) OBESITY DUE TO EXCESS CALORIES; Z68.41 - BODY MASS INDEX (BMI) 40.0-44.9, ADULT Status: Chronic Priority: Low Current Visit: No (13) History of pulmonary embolus (PE) SNOMED Code(s): 833461000 ICD Code: Z86.711 - PERSONAL HISTORY OF PULMONARY EMBOLISM Status: Chronic Priority: Low Current Visit: No (14) History of bilateral mastectomy SNOMED Code(s): 282713594, 918384034 ICD Code: Z90.13 - ACQUIRED ABSENCE OF BILATERAL BREASTS AND NIPPLES Status : Chronic Priority: Low Current Visit: No (15) Hiatal hernia SNOMED Code(s): 44577458 ICD Code: K44.9 - DIAPHRAGMATIC HERNIA WITHOUT OBSTRUCTION OR GANGRENE Status: Chronic Priority: Low Current Visit: No (16) Diarrhea SNOMED Code(s): 61719895 ICD Code: R19.7 - DIARRHEA, UNSPECIFIED Status: Acute Priority: High Current Visit: Yes Qualifiers: Diarrhea type: unspecified type Qualified Code(s): R19.7 - Diarrhea, unspecified (17) Generalized weakness SNOMED Code(s): 45007961 ICD Code: R53.1 - WEAKNESS Status: Acute Priority: High Current Visit: Yes (18) Palliative chemotherapy underway SNOMED Code(s): 666590102, 347011294, 105601397 ICD Code: Z79.899 - OTHER CLASSROOM TEACHER (CURRENT) DRUG THERAPY Status: Chronic Priority: Medium Current Visit: No (19) Hypertension SNOMED Code(s): 72128583 ICD Code: I10 - ESSENTIAL (PRIMARY) HYPERTENSION Status: Chronic Priority : Medium Current Visit: No Qualifiers: Hypertension type: essential hypertension Qualified Code(s): I10 - Essential (primary) hypertension (20) Poor dentition SNOMED Code(s): 166272030 ICD Code: K08.9 - DISORDER OF TEETH AND SUPPORTING STRUCTURES, UNSPECIFIED Status: Acute Current Visit: Yes (21) Hypoalbuminemia SNOMED Code(s): 489609499 ICD Code: E88.09 - OTH DISORDERS OF PLASMA-PROTEIN METABOLISM, NEC Status: Acute Priority: Medium Current Visit: Yes (22) Hypomagnesemia SNOMED Code(s): 612740513 ICD Code: E83.42 - HYPOMAGNESEMIA Status: Acute Current Visit: Yes (23) Altered mental status SNOMED Code(s): 636393167 ICD Code: R41.82 - ALTERED MENTAL STATUS, UNSPECIFIED Status: Acute Priority: High Current Visit: Yes Qualifiers: Altered mental status type: transient alteration of awareness Qualified Code(s): R40.4 - Transient alteration of awareness (24) Brain lesion SNOMED Code(s): 553958371 ICD Code: G93.9 - DISORDER OF BRAIN, UNSPECIFIED Status: Acute Priority: High Current Visit: Yes - Patient Summary/Data Consults: Consultations 11/16/19 07:48 Consult to Case Management/Air Transportation Provider [CONS] Routine Consult to Spiritual Care [CONS] Routine OT Evaluation and Treatment [CONS] Routine PT Evaluation and Treatment [CONS] Routine 11/16/19 08:07 Consult to Pilot Plant Research Technician [CONS] Routine Labs Pending at D/C: Urine cultures - (30-40 CFU gram negative rods) Blood cultures (Negative x1 day) Fungus culture - right great toe Wound culture - left abdominal skin fold. Hospital Course: Antonella Cortez presented to our Emergency Room and was admitted for acute onset weakness and diarrhea. Patient is a cancer patient sees Dr. Handley. She has been doctoring with him for 6 years due to metastatic breast cancer. He reports that until recently her relapses have been to lymph nodes in her chest but as of recently she was noted to have nodules in both her lungs. She underwent a new type of treatment this past Thursday and since then has had leukopenia, worsening weakness, diarrhea, and a worsening general feeling of unwellness. In our ED CBC was 1.02 with an absolute neutrophil count of 25. She was a neutropenic diet and neutropenic precautions have been implemented. She does have a port in her right chest which was accessed. She was started on cefepime and vancomycin as she has been reporting chills as well. No fevers documented or noted by the patient. C. difficile and stool culture were ordered however patient's diarrhea resolved once on the floor. UA was obtained and is growing out 20-30 CFU's of gram-negative rods thus far. She does have a wound on the left side of her abdomen within a skin fold which the patient states has been occasionally draining what she describes as a purulent material. There was no real drainage noted here however a wound culture was attempted to be obtained. She also is noted to have what appeared to be a toenail fungus on her great toe and this was negative for SEFERINO. Fungal culture was sent. Blood cultures were obtained and were negative x1 day. Procalcitonin was 0.3. Chest x-ray obtained in the ED did note that it appears the patient's lung nodules have increased in size. Dr. Handley, oncologist, was contacted on 11/16/2019 and agrees to the infectious work-up but states that patient symptoms are likely due to her cancer treatments. He agreed to the plan to start the patient on Granix daily and follow daily labs. He reports a goal hemoglobin above 8 and states that we should likely transfuse if hemoglobin drops into the 7 range. Platelets have been dropping while here and she is in the 90,000 range today. He reports platelet transfusion should be performed if platelets dropped to 10, 000 without a fever or 20,[address] Handley requested we follow-up with him on Thursday. Today, 11/17/2019, patient was noted to have worsening mental status and be somewhat lethargic. Lactic acid was obtained and was within normal limits. ABG was obtained and does not show hypercapnia. Head CT without contrast was obtained and does show bilateral lesions within the brain of 1.8 cm and 1.3 cm. Unknown if this represents worsening metastatic disease or cystic changes. Also recommends MRI for follow-up. While this was occurring Dr. Handley' PEST CONTROL SERVICE REPRESENTATIVE contacted us to check on patient and reported that they would like the patient transferred to [place] given the worsening clinical picture. She stated that the brain lesions are new to the patient. Patient is a full code. Contacted [facility] 1 call and report was given to Dr. Salinas, hospitalist. He requested Dr. Briggs, neurosurgery, be contacted as well who recommended 1 g of Decadron be given prior to transport in bolus form and that we start Keppra for seizure prophylaxis. Prior to transport patient's mental status returned to normal. She is now A&O x3 and responds to all questions appropriately. She agrees to transfer. Patient will transfer to [facility] today via ambulance. - Patient Instructions Diet: NPO - Discharge Plan *PRESCRIPTION DRUG MONITORING PROGRAM REVIEWED*: No *COPY OF PRESCRIPTION DRUG MONITORING REPORT IN PATIENT LUZ: No Home Medications: Home Meds Aspirin [Halfprin] 81 mg PO DAILY 03/18/16 [History] Levothyroxine [Synthroid] 50 mcg PO ACBREAKFAST 03/18/16 [History] Losartan [Cozaar] 25 mg PO DAILY 03/18/16 [History] Metoprolol Succinate [Toprol XL 100mg] 100 mg PO DAILY 03/18/16 [History] Multivitamin with Minerals [Multivitamins with Minerals] 1 tab PO DAILY [History] Nitroglycerin 0.4 mg SL ASDIRECTED PRN 03/18/16 [History] Omeprazole 20 mg PO QPM 03/18/16 [History] Oxybutynin [Oxybutynin ER] 10 mg PO BEDTIME 03/18/16 [History] Calcium Carbonate/Vitamin D3 [Calcium 500 + Vit D 400 Tablet] 400 - 500 mg PO DAILY 04/27/16 [History] Potassium Chloride 10 meq PO DAILY 07/29/17 [History] Prochlorperazine [Compazine] 10 mg PO QID PRN 07/29/17 [History] ondansetron HCL [Zofran] 8 mg PO TID PRN 07/29/17 [History] Antiox.mv No.10/Omeg3s/Lut/[place] [I-Caps with Lutein-[place] 3 SFG] 1 tab PO DAILY 11/16/19 [History] Biotin 1,000 mcg PO DAILY 11/16/19 [History] Bumetanide [Bumex] 1 mg PO Q48H 11/16/19 [History] C-Lido/Diph/Antacid 10 ml PO QID PRN 11/16/19 [History] Cyanocobalamin (Vitamin B-12) [Vitamin B-12] 500 mcg PO DAILY 11/16/19 [History] Diclofenac Gel 1% 2 gram TOP QID 11/16/19 [History] Loperamide [Imodium] 2 mg PO BID PRN 11/16/19 [History] Magnesium Oxide 500 mg PO DAILY 11/16/19 [History] Rivaroxaban [Xarelto] 20 mg PO DAILY 11/16/19 [History] Sennosides/Docusate Sodium [Sennosides-Docusate Sodium] 8.6 - 50 mg PO DAILY [History] amLODIPine [Norvasc] 5 mg PO DAILY 11/16/19 [History] Oxygen Therapy Mode: Room Air Patient Handouts: Dehydration, Adult Forms: ED Department Discharge Referrals: Haris Perez MD [Physician] - Stacey Huggins MD [Primary Care Provider] - Yahir Handley MD [Ordering Only Provider] - - Discharge Summary/Plan Comment DC Time >30 min.: Yes (60 minutes ) - General Info Date of Service: 11/17/19 Admission Dx/Problem (Free Text: Admission Diagnosis/Problem Admission Diagnosis/Problem Weakness Functional Status: Reports: Pain Controlled, Incentive Spirometry - Review of Systems General: Reports: Weakness, Fatigue, Malaise, Chills. Denies: Fever HEENT: Reports: No Symptoms. Denies: Headaches, Sore Throat Pulmonary: Reports: No Symptoms. Denies: Shortness of Breath, Cough, Sputum, Wheezing Cardiovascular: Reports: No Symptoms. Denies: Chest Pain, Palpitations Gastrointestinal: Reports: No Symptoms. Denies: Abdominal Pain, Constipation, Diarrhea (None today ), Nausea, Vomiting Genitourinary: Reports: No Symptoms. Denies: Pain Musculoskeletal: Reports: Shoulder Pain (bilateral chroinc ), Other ( Generalized myalgias) Skin: Reports: No Symptoms. Denies: Cyanosis Neurological: Reports: No Symptoms, Numbness (Bilateral feet), Tingling ( Adderall feet), Weakness. Denies: Confusion (None currently), Dizziness, Headache, Seizure, Syncope, Tremors, Trouble Speaking, Change in Speech Psychiatric: Reports: No Symptoms - Patient Data Vitals - Most Recent: Last Vital Signs Temp 97.7 F 11/17/19 02:13 Pulse 69 11/17/19 02:13 Resp 18 11/17/19 02:13 BP 143/89 H 11/17/19 08:05 Pulse Ox 100 11/17/19 05:36 Weight - Most Recent: 215 lb 4.8 oz I&O - Last 24 hours: Intake & Output 11/16/19 11/17/19 11/17/19 22:59 06:59 14:59 Intake Total 1479 1249 240 Output Total 1550 2150 Balance -71 -901 240 Lab Results - Last 24 hrs: Laboratory Results - last 24 hr 11/16/19 11/16/19 11/17/19 Range/Units 02:30 02:30 05:04 WBC (3.98-10.04) K/mm3 RBC (3.98-5.22) M/mm3 Hgb (11.2-15.7) gm/dl Hct (34.1-44.9) % MCV (79.4-94.8) fl MCH (25.6-32.2) pg MCHC (32.2-35.5) g/dl RDW Std Deviation (36.4-46.3) fL Plt Count (182-369) K/mm3 MPV (9.4-12.3) fl Neutrophils % (Manual) (40-60) % Band Neutrophils % (0-10) % Lymphocytes % (Manual) (20-40) % Atypical Lymphs % % Monocytes % (Manual) (2-10) % Eosinophils % (Manual) (0.7-5.8) % Basophils % (Manual) (0.1-1.2) Platelet Estimate Poikilocytosis Anisocytosis RBC Morph Comment Puncture Site ABG pH (7.35-7.45) ABG pCO2 (35.0-45.0) mmHg ABG pO2 (80.0-100.0) mmHg ABG HCO3 (22.0-26.0) meq/L ABG O2 Saturation (96.0-97.0) % ABG Base Excess (-2-2.0) A-a Gradient mmHg O2 Delivery Device FiO2 (21.00-100.00) % Sodium 138 (136-145) mEq/L Potassium 3.6 (3.5-5.1) mEq/L Chloride 103 (98-107) mEq/L Carbon Dioxide 26 (21-32) mEq/L Anion Gap 12.6 (5-15) BUN 22 H (7-18) mg/dL Creatinine 1.0 (0.55-1.02) mg/dL Est Cr Clr Drug Dosing 38.94 mL/min Estimated GFR (MDRD) 55 (>60) mL/min BUN/Creatinine Ratio 22.0 H (14-18) Glucose 103 (83-115) mg/dL Lactic Acid (0.4-2.0) mmol/L Calcium 8.2 L (8.5-10.1) mg/dL Phosphorus 3.2 (2.6-4.7) mg/dL Magnesium 1.6 L (1.8-2.4) mg/dl Total Bilirubin 0.5 (0.2-1.0) mg/dL AST 25 (15-37) U/L ALT 34 (14-59) U/L Alkaline Phosphatase 95 (46-116) U/L Total Protein 6.2 L (6.4-8.2) g/dl Albumin 2.6 L (3.4-5.0) g/dl Globulin 3.6 gm/dL Albumin/Globulin Ratio 0.7 L (1-2) Prealbumin 18.8 (17.0-34.0) mg/dL Procalcitonin 0.31 H (<0.10) ng/mL 11/17/19 11/17/19 11/17/19 Range/Units 05:04 12:35 12:45 WBC 0.97 L* (3.98-10.04) K/mm3 RBC 3.60 L (3.98-5.22) M/mm3 Hgb 10.1 L (11.2-15.7) gm/dl Hct 31.9 L (34.1-44.9) % MCV 88.6 (79.4-94.8) fl MCH 28.1 (25.6-32.2) pg MCHC 31.7 L (32.2-35.5) g/dl RDW Std Deviation 50.2 H (36.4-46.3) fL Plt Count 98 L (182-369) K/mm3 MPV 10.9 (9.4-12.3) fl Neutrophils % (Manual) 47 (40-60) % Band Neutrophils % 0 (0-10) % Lymphocytes % (Manual) 43 H (20-40) % Atypical Lymphs % 0 % Monocytes % (Manual) 5 (2-10) % Eosinophils % (Manual) 5 (0.7-5.8) % Basophils % (Manual) 0 L (0.1-1.2) Platelet Estimate Decreased Poikilocytosis 1+ slight Anisocytosis 1+ slight RBC Morph Comment Not Reportable Puncture Site Rt radial ABG pH 7.54 H (7.35-7.45) ABG pCO2 26.1 L (35.0-45.0) mmHg ABG pO2 101.0 H (80.0-100.0) mmHg ABG HCO3 22.3 (22.0-26.0) meq/L ABG O2 Saturation 97.6 H (96.0-97.0) % ABG Base Excess 1.0 (-2-2.0) A-a Gradient 16 mmHg O2 Delivery Device Room air FiO2 21.00 (21.00-100.00) % Sodium (136-145) mEq/L Potassium (3.5-5.1) mEq/L Chloride (98-107) mEq/L Carbon Dioxide (21-32) mEq/L Anion Gap (5-15) BUN (7-18) mg/dL Creatinine (0.55-1.02) mg/dL Est Cr Clr Drug Dosing mL/min Estimated GFR (MDRD) (>60) mL/min BUN/Creatinine Ratio (14-18) Glucose (83-115) mg/dL Lactic Acid 1.5 (0.4-2.0) mmol/L Calcium (8.5-10.1) mg/dL Phosphorus (2.6-4.7) mg/dL Magnesium (1.8-2.4) mg/dl Total Bilirubin (0.2-1.0) mg/dL AST (15-37) U/L ALT (14-59) U/L Alkaline Phosphatase (46-116) U/L Total Protein (6.4-8.2) g/dl Albumin (3.4-5.0) g/dl Globulin gm/dL Albumin/Globulin Ratio (1-2) Prealbumin (17.0-34.0) mg/dL Procalcitonin (<0.10) ng/mL KT Results - Last 24 hrs: Microbiology 11/16/19 07:55 Urine Culture - Preliminary Urine, Clean Catch Gram Negative Rods 11/16/19 02:42 Aerobic Blood Culture - Preliminary Blood - Venous - Lab Draw NO GROWTH AFTER 1 DAY Anaerobic Blood Culture - Preliminary NO GROWTH AFTER 1 DAY 11/16/19 02:30 Aerobic Blood Culture - Preliminary Blood - Venous NO GROWTH AFTER 1 DAY Anaerobic Blood Culture - Preliminary NO GROWTH AFTER 1 DAY 11/16/19 12:15 SEFERINO Preparation - Final Toenail, Right - Right Big Med Orders - Current: Current Medications Acetaminophen (Tylenol) 650 mg PO Q4H PRN PRN Reason: Pain (Mild 1-3)/fever Last Admin: 11/16/19 20:38 Dose: 650 mg Amlodipine Besylate (Norvasc) 5 mg PO DAILY [facility] Last Admin: 11/17/19 08:05 Dose: 5 mg Bumetanide (Bumex) 1 mg PO Q48H [facility] Last Admin: 11/16/19 13:48 Dose: 1 mg Diclofenac Sodium (Voltaren 1% Gel) 2 gm TOP QID [facility] Last Admin: 11/17/19 08:06 Dose: 2 gm Cefepime HCl 2 gm/ Premix 50 mls @ 100 mls/hr IV Q12HR [facility] Last Admin: 11/17/19 09:58 Dose: 100 mls/hr Vancomycin HCl 1 gm/ Sodium (Chloride) 250 mls @ 250 mls/hr IV Q12H [facility] Last Admin: 11/17/19 00:24 Dose: Not Given Lactated Ringer's (Ringers, Lactated) 1,000 mls @ 100 mls/hr IV ASDIRECTED [facility] Last Admin: 11/17/19 02:25 Dose: 100 mls/hr Levothyroxine Sodium (Synthroid) 50 mcg PO ACBREAKFAST [facility] Last Admin: 11/17/19 06:18 Dose: 50 mcg Losartan Potassium (Cozaar) 25 mg PO DAILY [facility] Last Admin: 11/17/19 08:01 Dose: 25 mg Metoprolol Succinate (100 Mg) 0 mg PO DAILY [facility] Last Admin: 11/17/19 08:03 Dose: 100 mg Rivaroxaban [Xarelto (] 20 Mg) 0 mg PO BEDTIME [facility] Last Admin: 11/16/19 20:37 Dose: 20 mg Omeprazole (Omeprazole) 20 mg PO BEDTIME [facility] Last Admin: 11/16/19 20:36 Dose: 20 mg Ondansetron HCl (Zofran) 4 mg IV Q6H PRN PRN Reason: Nausea/Vomiting Oxybutynin Chloride (Oxybutynin Er) 10 mg PO BEDTIME [facility] Last Admin: 11/16/19 20:36 Dose: 10 mg Tbo-Filgrastim (Granix) 480 mcg SUBCUT DAILY [facility] Last Admin: 11/17/19 08:02 Dose: 480 mcg Vancomycin HCl (Pharmacy To Dose - Vancomycin) 1 dose .XX ASDIRECTED PRN PRN Reason: RX TO DOSE VANCO Discontinued Medications Aspirin (Halfprin) 81 mg PO DAILY [facility] Last Admin: 11/16/19 14:42 Dose: Not Given Aspirin (Halfprin) 81 mg PO DAILY [facility] Last Admin: 11/17/19 08:03 Dose: 81 mg Aspirin (Aspirin) Confirm Administered Dose 81 mg .ROUTE .STK-MED ONE Stop: 11/16/19 13:44 Last Admin: 11/16/19 14:06 Dose: Not Given Bumetanide (Bumex) 1 mg PO Q48H [facility] Last Admin: 11/16/19 14:42 Dose: Not Given Diclofenac Sodium (Voltaren 1% Gel) 2 gm TOP QID [facility] Lactated Ringer's (Ringers, Lactated) 1,000 mls @ 999 mls/hr IV .BOLUS ONE Stop: 11/16/19 03:20 Last Admin: 11/16/19 02:49 Dose: 999 mls/hr Sodium Chloride (Normal Saline) 1,000 mls @ 100 mls/hr IV ASDIRECTED [facility] Last Admin: 11/16/19 06:33 Dose: 100 mls/hr Vancomycin HCl 1 gm/Vancomycin HCl 250 mg/ Sodium Chloride 250 mls @ 166.667 mls/hr IV ONETIME ONE Stop: 11/16/19 13:29 Last Admin: 11/16/19 12:44 Dose: Not Given Vancomycin HCl 1 gm/Vancomycin HCl 250 mg/ Sodium Chloride 250 mls @ 166.667 mls/hr IV ONETIME ONE Stop: 11/16/19 14:29 Last Admin: 11/16/19 12:53 Dose: 166.667 mls/hr Magnesium Sulfate 2 gm/ Premix 50 mls @ 25 mls/hr IV ONETIME ONE Stop: 11/17/19 09:21 Last Admin: 11/17/19 07:56 Dose: 25 mls/hr Rivaroxaban [Xarelto (] 20 Mg) 0 mg PO DAILY [facility] Last Admin: 11/16/19 14:42 Dose: Not Given Rivaroxaban [Xarelto (] 20 Mg) 0 mg PO DAILY [facility] Last Admin: 11/16/19 14:43 Dose: Not Given Omeprazole (Omeprazole) 20 mg PO QPM [facility] Last Admin: 11/16/19 18:37 Dose: Not Given Diclofenac Gel 1% 0 each TOP QID [facility] Last Admin: 11/16/19 14:44 Dose: Not Given - Exam Quality Assessment: Reports: DVT Prophylaxis General: Reports: Alert, Oriented, Cooperative, No Acute Distress HEENT: Reports: Pupils Equal, Pupils Reactive, Mucous Membr. Moist/[place] Neck: Reports: Supple, Trachea Midline Lungs: Reports: Clear to Auscultation, Normal Respiratory Effort Cardiovascular: Reports: Regular Rate, Regular Rhythm GI/Abdominal Exam: Normal Bowel Sounds, Soft, Non-Tender, No Distention, Other ( Wound in left skin fold of abdomen. No drainage noted. Does not appear erythematous but does appear irritated.) (Female) Exam: Deferred Rectal (Female) Exam: Deferred Back Exam: Reports: Normal Inspection, Full Range of Motion Extremities: Normal Inspection, Normal Range of Motion, Non-Tender, No Pedal Edema, Normal Capillary Refill Skin: Reports: Warm, Dry, Intact Neurological: Reports: No New Focal Deficit Psy/Mental Status: Reports: Alert, Normal Affect, Normal Mood
[2019-11-17] MEDS ORDERED: Dexamethasone 10 MG/ML SDV IVPUSH ONE (14:30)
[2019-11-17] MEDS ORDERED: levETIRAcetam 500 MG/5 ML SDV ONE (14:33)
[2019-11-17] MEDS ORDERED: levETIRAcetam 1,000 MG in Sodium Chloride 0.9% 100 ML IV ONE (15:00)
[2019-11-17 16:12] VITALS: BP 119/55; PULSE 73
== END 2019-11-17 17:20 ==
LOC: JD.ED 02:04 → JD.MS 04:19
PROVIDERS: ADMIT Family Medicine; ATTEND Internal Medicine
DX: D70.1 Agranulocytosis secondary to cancer chemotherapy (principal); K52.1 Toxic gastroenteritis and colitis; T45.1X5A Adverse effect of antineoplastic and immunosuppressive drugs, initial encounter; E86.0 Dehydration; D63.0 Anemia in neoplastic disease; M19.90 Unspecified osteoarthritis, unspecified site; I25.10 Atherosclerotic heart disease of native coronary artery without angina pectoris; L30.9 Dermatitis, unspecified; E78.5 Hyperlipidemia, unspecified; C50.912 Malignant neoplasm of unspecified site of left female breast; C78.02 Secondary malignant neoplasm of left lung; C77.9 Secondary and unspecified malignant neoplasm of lymph node, unspecified; E66.01 Morbid (severe) obesity due to excess calories; K44.9 Diaphragmatic hernia without obstruction or gangrene; E83.42 Hypomagnesemia; G93.9 Disorder of brain, unspecified; R40.4 Transient alteration of awareness; K08.9 Disorder of teeth and supporting structures, unspecified; E78.00 Pure hypercholesterolemia, unspecified; I10 Essential (primary) hypertension; K21.9 Gastro-esophageal reflux disease without esophagitis; N39.0 Urinary tract infection, site not specified; E03.9 Hypothyroidism, unspecified; Z68.41 Body mass index [BMI] 40.0-44.9, adult; Z88.8 Allergy status to other drugs, medicaments and biological substances; Z88.6 Allergy status to analgesic agent; Z91.030 Bee allergy status; Z79.82 Long term (current) use of aspirin; Z79.899 Other long term (current) drug therapy; Z79.890 Hormone replacement therapy; Z86.711 Personal history of pulmonary embolism; Z91.048 Other nonmedicinal substance allergy status; Z90.13 Acquired absence of bilateral breasts and nipples
CPT/HCPCS: 36415; 36600; 70450; 70486; 71045; 80053; 81001; 82803; 83605; 83735; 84100; 84134; 84145; 84439; 84443; 85007; 85027; 87040; 87070; 87086; 87088; 87184; 87186; 87220; 96360; 97162; 97165; 99285; A9270; J0692; J1100; J1447; J1953; J2405; J3370; J3475; J7030; J7050; J7120; 96361; 96365; 96366; 96367; 96368; 96372; 96375; 96376; 99284; G0378